=== PATIENT | male | born 1955 | race Caucasian/White ===

== ENCOUNTER 2018-03-16 12:05 | Inpatient (IN) | payer OTHER ==
[2018-03-16 13:01] LABS: % BASOPHILS 0.2 % (0.0-2.0); % EOSINOPHILS 1.1 % (0.0-5.0); % LYMPHOCYTES 13.2 % (20.0-50.0); % MONOCYTES 7.3 % (2.0-10.0); % NEUTROPHILS 78.2 % (40.0-80.0); EOSINOPHILE ABSOLUTE 0.1 Th/cmm (0.1-0.4); HEMATOCRIT 44.7 % (41.0-60); HEMOGLOBIN 14.9 gm/dL (12-16); LYMPHOCYTE ABSOLUTE 1.4 Th/cmm (1.5-3.0); MEAN CELL VOLUME 93.3 fl (80-99); MEAN CORPUSCULAR HEMOGLOBIN 31.2 pg (26.0-30.0); MEAN CORPUSCULAR HGB CONC 33.4 pg (28.0-36.0); MEAN PLATELET VOLUME 7.9 fl; MONOCYTE ABSOLUTE 0.8 Th/cmm (0.3-1.0); PLATELET COUNT 220 Th/cmm (150-400); RED BLOOD COUNT 4.79 Mil/cmm (4.30-5.70); RED CELL DISTRIBUTION WIDTH 12.8 % (11.5-20.0); WHITE BLOOD COUNT 10.3 Th/cmm (4.8-10.8)
[2018-03-16 13:21] LABS: ACETAMINOPHEN < 10.0 ug/mL (10.0-30.0); ALBUMIN 4.8 gm/dL (4.2-5.5); ALKALINE PHOSPHATASE 103 U/L (34-104); BILIRUBIN,TOTAL 0.8 mg/dL (0.3-1.0); BUN - UREA NITROGEN 22 mg/dL (7-25); CALCIUM SERUM 10.2 mg/dL (8.6-10.3); CARBON DIOXIDE 29.4 mEq/L (21.0-31.0); CHLORIDE 98 mEq/L (98-107); CHOLESTEROL 112 mg/dL (<200); CREATININE - SERUM 1.1 mg/dL (0.7-1.3); GFR AFRICAN-AMERICAN > 60.0 ml/min (>90); GFR NON AFRICAN-AMERICAN > 60.0 ml/min; GLUCOSE 119 mg/dL (70-105); HDL -HIGH DENSITY LIPOPROTEIN 63 mg/dL (23-92); POTASSIUM SERUM 3.4 mEq/L (3.5-5.1); SALICYLATES (ASPIRIN) < 25.0 mg/L (30.0-100.0); SGOT 12 U/L (13-39); SGPT/ALT 12 U/L (7-52); SODIUM SERUM 137 mEq/L (136-145); TOTAL PROTEIN,SERUM 7.2 gm/dL (6.0-8.3); TRIGLYCERIDES 90 mg/dL (<150)
[2018-03-16 13:42] LABS: URINE SOURCE CLEAN C
[2018-03-16 13:50] LABS: URINE BILIRUBIN NEGATIVE (NEGATIVE); URINE BLOOD NEGATIVE (NEGATIVE); URINE GLUCOSE (UA) NEGATIVE (NEGATIVE); URINE KETONE TRACE mg/dL (NEGATIVE); URINE LEUKOCYTE ESTERASE NEGATIVE (NEGATIVE); URINE NITRATE NEGATIVE (NEGATIVE); URINE PH 5.5 (4.6 - 8.0); URINE PROTEIN NEGATIVE (NEGATIVE)
[2018-03-16 13:54] LABS: URINE CLARITY CLEAR (CLEAR); URINE COLOR YELLOW; URINE MICROSCOPIC INDICATED? YES
--- NOTE | 2018-03-16 14:02 | ED Physician Chart ---
ED Chief Complaint/HPI - Patient Information Date Seen:: 03/16/18 Time Seen:: 12:15 Chief Complaint:: Depression History of Present Illness:: onset x 2 days of depression and SIs; no report of trauma, H/As, neck pain, C/P , SOB, Abd. pain, A/N/V/D/C, fever, chills, or urinary s/s Allergies:: Allergies Allergy/AdvReac Type Severity Reaction Status Date / Time No Known Allergies Allergy Verified 03/16/18 12:25 Vitals:: Vital Signs - 8 hr 03/16/18 12:13 Temp 97.4 F HR 79 RR 18 BP 127/65 Historian:: Patient, EMS Review:: Nurse's Note Reviewed, Old Chart Reviewed, EMS run form Reviewed ED Review of Systems - Review of Systems General/Constitutional: No fever, No chills, No weight loss, No weakness, No diaphoresis, No edema, No loss of appetite Skin: No skin lesions, No rash, No bruising Head: No headache, No light-headedness Eyes: No loss of vision, No pain, No diplopia ENT: No earache, No nasal drainage, No sore throat, No tinnitus Neck: No neck pain, No swelling, No thyromegaly, No stiffness, No mass noted Cardio Vascular: No chest pain, No palpitations, No PND, No orthopnea, No edema Pulmonary: No SOB, No cough, No sputum, No wheezing GI: No nausea, No vomiting, No diarrhea, No pain, No melena, No hematochezia, No constipation, No hematemesis G/U: No dysuria, No frequency, No hematuria, No nacturia Musculoskeletal: No bone or joint pain, No back pain, No muscle pain Endocrine: No polyuria, No polydipsia Psychiatric: Prior psych history, Depression, Anxiety, Suicidal ideation, No homicidal ideation, No auditory hallucination, No visual hallucination Hematopoietic: No bruising, No lymphadenopathy Allergic/Immuno: No urticaria, No angioedema Neurological: No syncope, No focal symptoms, No weakness, No paresthesia, No headache, No seizure, No dizziness, No confusion, No vertigo ED Past Medical History - Past Medical History Obtainable: Yes Past Medical History: HTN, DM, CAD, Dyslipidemia Family History: Diabetes Melitus, HTN Social History: Non Smoker, No Alcohol, No Drug Use, Single, Care Facility Surgical History: None Psychiatricy History: Depression, Bipolar Medication: Reviewed Family Medical History - Family Member Mother History Unknown: Yes ED Physical Exam - Physical Examination General/Constitutional: Awake, Well-developed, well-nourished, Alert, No distress, GCS 15, Non-toxic appearing, Ambulatory Head: Atraumatic Eyes: Lids, conjuctiva normal, PERRL, EOMI Skin: Nl inspection, No rash, No skin lesions, No ecchymosis, Well hydrated, No lymphadenopathy ENMT: External ears, nose nl, TM canals nl, Nasal exam nl, Lips, teeth, gums nl , Oropharynx nl, Tonsils nl Neck: Nontender, Full ROM w/o pain, No JVD, No nuchal rigidity, No bruit, No mass, No stridor Respiratory: Nl effort/Exclusion, Clear to Auscultation, No Wheeze/Rhonchi/Rales Cardio Vascular: RRR, No murmur, gallop, rubs, NL S1 S2, Carotid/Femoral/Distal pulses equal bilaterally GI: No tenderness/rebounding/guarding, No organomegaly, No hernia, Normal BS's, Nondistended, No mass/bruits, No McBurney tenderness : No CVA tenderness Extremities: No tenderness or effusion, Full ROM, normal strength in all extremities, No edema, Normal digits & nails Neuro/Psych: Alert/oriented, DTR's symmetric, Normal sensory exam, Normal motor strength, Judgement/insight normal, Mood normal, Normal gait, No focal deficits Other Neuro/Psych comments:: + Psychomotor Retardation; + SIs; Mood/Affect: Labile Misc: Normal back, No paraspinal tenderness ED Labs/Radiology/EKG Results - Lab Results Results: Laboratory Tests 03/16/18 03/16/18 03/16/18 12:50 12:50 12:50 WBC 10.3 RBC 4.79 Hgb 14.9 Hct 44.7 MCV 93.3 MCH 31.2 H MCHC Differential 33.4 RDW 12.8 Plt Count 220 MPV 7.9 Neutrophils % 78.2 Lymphocytes % 13.2 L Monocytes % 7.3 Eosinophils % 1.1 Basophils % 0.2 Sodium 137 Potassium 3.4 L Chloride 98 Carbon Dioxide 29.4 Anion Gap 13.0 BUN 22 Creatinine 1.1 Est GFR ( Amer) > 60.0 Est GFR (Non-Af Amer) > 60.0 BUN/Creatinine Ratio 20.0 Glucose 119 H Calcium 10.2 Total Bilirubin 0.8 AST 12 L ALT 12 Alkaline Phosphatase 103 Troponin I Total Protein 7.2 Albumin 4.8 Globulin 2.4 Albumin/Globulin Ratio 2.0 H Triglycerides 90 Cholesterol 112 LDL Cholesterol Direct 37 L HDL Cholesterol 63 TSH 0.62 Urine Color Urine Clarity Urine pH Ur Specific [place] Urine Protein Urine Glucose (UA) Urine Ketones Urine Blood Urine Nitrate Urine Bilirubin Urine Urobilinogen Ur Leukocyte Esterase Salicylates < 25.0 L Acetaminophen < 10.0 L Ethyl Alcohol < 10 03/16/18 03/16/18 12:50 13:05 WBC RBC Hgb Hct MCV MCH MCHC Differential RDW Plt Count MPV Neutrophils % Lymphocytes % Monocytes % Eosinophils % Basophils % Sodium Potassium Chloride Carbon Dioxide Anion Gap BUN Creatinine Est GFR ( Amer) Est GFR (Non-Af Amer) BUN/Creatinine Ratio Glucose Calcium Total Bilirubin AST ALT Alkaline Phosphatase Troponin I 0.01 Total Protein Albumin Globulin Albumin/Globulin Ratio Triglycerides Cholesterol LDL Cholesterol Direct HDL Cholesterol TSH Urine Color YELLOW Urine Clarity CLEAR Urine pH 5.5 Ur Specific [place] 1.025 Urine Protein NEGATIVE Urine Glucose (UA) NEGATIVE Urine Ketones TRACE Urine Blood NEGATIVE Urine Nitrate NEGATIVE Urine Bilirubin NEGATIVE Urine Urobilinogen 1.0 Ur Leukocyte Esterase NEGATIVE Salicylates Acetaminophen Ethyl Alcohol Comments:: Reviewed - EKG Interpretations EKG Time:: 12:48 Rate & Rhythm: 72; NSR Comments:: non-specific st-t changes ED Septic Shock - . Is Septic Shock (SBP<90, OR Lactate>4 mmol\L) present?: No - <6hrs of presentation: Vital Signs: Vital Signs - 8 hr 03/16/18 12:13 Temp 97.4 F HR 79 RR 18 BP 127/65 ED Reassessment (Disposition) - Reassessment Reassessment Condition:: Improved - Diagnosis Diagnosis:: Dx: Depression; Hypokalemia; Suicidal Ideations; Medical Clearance
[2018-03-16 14:12] LABS: URINE BACTERIA FEW /hpf (NONE SEEN); URINE EPITHELIAL CELLS OCCASIONAL /lpf (FEW); URINE WBC 0-2 /hpf (0-5)
[2018-03-16 14:24] LABS: AMPHETAMINE URINE NEGATIVE (NEGATIVE); BARBITURATES URINE NEGATIVE (NEGATIVE); BENZODIAZEPINES QUAL URINE POSITIVE (NEGATIVE); CANNABINOID THC NEGATIVE (NEGATIVE); COCAINE METABOLITE QUAL URINE NEGATIVE (NEGATIVE); METHADONE URINE NEGATIVE (NEGATIVE); METHAMPHETAMINES QUAL URINE NEGATIVE (NEGATIVE); OPIATES (MORPHINE) QUAL. URINE NEGATIVE (NEGATIVE); PHENCYCLIDINE (PCP) URINE NEGATIVE (NEGATIVE); TRICYCLICS (TCA) QUAL. URINE NEGATIVE (NEGATIVE)
[2018-03-16] MEDS ORDERED: Potassium Chloride 20 mEq ER Tab PO ONE ×3 (14:40→16:58)
[2018-03-16 15:56] LABS: PROTHROMBIN TIME (TEST) 40.8 SECONDS (9.5-11.5)
[2018-03-16 16:01] LABS: INR 4.2 (0.5-1.4)
[2018-03-16 18:52] LABS: PROTHROMBIN TIME (TEST) 45.8 SECONDS (9.5-11.5)
[2018-03-16 19:00] LABS: INR 4.74 (0.5-1.4)
[2018-03-17 08:48] LABS: INR 3.31 (0.5-1.4); PROTHROMBIN TIME (TEST) 32.6 SECONDS (9.5-11.5)
--- NOTE | 2018-03-17 14:59 | History & Physical ---
ADMIT DATE: 03/17/2018 CHIEF COMPLAINT: Major depression. HISTORY OF PRESENT ILLNESS: The patient is a 62-year-old male with long history of hypertension, diabetes mellitus, hyperlipidemia, and depression, presented to the Emergency Room with suicidal ideation. The patient is evaluated by the ER physician. Initial workup significant for Coumadin overdose. The patient admitted to medical floor. Psych evaluation ordered. No chest pain, no shortness of breath, no nausea, no vomiting. PAST MEDICAL HISTORY: Significant for hypertension, diabetes mellitus, hyperlipidemia, DVT of lower extremity, depression. PAST SURGICAL HISTORY: No recent surgery. ALLERGIES: None. MEDICATIONS: Follow admission reconciliation. SOCIAL HISTORY: No smoking, no alcohol, no drugs. FAMILY HISTORY: Noncontributory. REVIEW OF SYSTEMS: RENAL SYSTEM: No history of chronic renal disorder. CARDIOVASCULAR SYSTEM: No coronary artery disease. ENDOCRINE SYSTEM: Has history of diabetes mellitus. GASTROINTESTINAL SYSTEM: No upper or lower gastrointestinal bleed. NEUROLOGICAL SYSTEM: Seizure disorder. MUSCULOSKELETAL SYSTEM: No muscular dystrophy. HEMATOLOGICAL SYSTEM: No bleeding tendencies. RESPIRATORY SYSTEM: No asthma. GENITOURINARY SYSTEM: No dysuria or hematuria. PHYSICAL EXAMINATION: GENERAL: He is awake, alert, oriented. VITAL SIGNS: Temperature is 99, heart rate 64, blood pressure 100/68. HEENT: Normocephalic. Pupils reacting to light and accommodation. Sclerae clear. NECK: Supple. Negative for lymphadenopathy, JVD or bruit. CHEST: Entry of air bilaterally normal. No rhonchi or wheezing. HEART: S1, S2 normal. No gallop rhythm. ABDOMEN: Soft, bowel sounds positive. EXTREMITIES: No edema. NEUROLOGIC: Awake, alert, oriented. No focal motor or sensory deficit. Cranial nerves 2-12 are intact. LABORATORY DATA: White blood cell 10.3, hemoglobin 14.9, hematocrit 220. INR 4.2. Sodium 137, potassium 3.4, BUN 22, creatinine 0.1. ASSESSMENT: 1. Coumadin overdose. 2. Major depression. 3. Hypertension. 4. Diabetes mellitus. 5. 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 PLAN: The patient admitted to the medical floor, started on 1800 kilocalories diet, sliding scale with regular insulin coverage. Dr. Zarate, psychiatrist consulted on the case. The patient will resume his medication. Pharmacy consult to dose Coumadin. The patient is a full code. JOB# [id number]
--- NOTE | 2018-03-17 19:37 | History & Physical ---
ADMIT DATE: 03/17/2018 IDENTIFYING DATA: The patient is a 62-year-old male living with his family. Information obtained directly interviewing the patient as well as reviewing the admission papers and they and they are reliable. JUSTIFICATION OF HOSPITALIZATION: The patient is admitted here on a 5150 as a danger to self. CHIEF COMPLAINT: "I'm feeling depressed and wanted to kill myself." HISTORY OF PRESENT ILLNESS: This patient has been feeling depressed since his mother a month ago. The patient is reported to have wanting to take a knife and then cut his throat until he starts to bleed and . The patient is stating that he has been getting acutely depressed since mother and was hospitalized on two occasions at [facility] for 3 days each and was discharged recently. The patient is stating that he has been seeing the doctor, but has been taking a medicine called the Lexapro that has been helping him with the depression. The patient at this time is feeling frustrated and has been having problem with his brothers with whom he is living and is stating that he wanted to end his life and hence he has been admitted over here for stabilization admitted to the Emergency Room. The patient is also reported to have a history of overdosing on Coumadin. PAST PSYCHIATRIC HISTORY: Please refer to the above. MEDICAL HISTORY: Significant for hypertension. SOCIAL HISTORY: The patient is living with his brother. The patient is recently sustained a loss of his mother. SUBSTANCE ABUSE HISTORY: None. PHYSICAL OR SEXUAL ABUSE HISTORY: None. LEGAL PROBLEMS: None at this time. MENTAL STATUS EXAMINATION: The patient is a 62-year-old, looking older than his stated age, superficially cooperative. Eye contact is poor. Mood is depressed. Affect is constricted. Insight and judgment at this time are noted to be impaired. Impulse control is noted to be poor. The patient is suicidal with the plan ____ homicidal ideation is noted since the patient has been wanting to end his life and wants to cut his throat with a knife. The patient is alert and oriented. Attention span and concentration are noted to be impaired. Short and long-term memory are noted to be fair. DIAGNOSTIC IMPRESSION: AXIS I: Major depressive disorder, first episode and severe. AXIS II: None. PLAN: To closely monitor the patient. We will continue the Lexapro and follow the patient with the supportive therapy. [facility]# [id number]
[2018-03-17] MEDS: INSULIN ASPART SLIDING SCALE 100 UNITS/ML UNIT SUBQ SCH (21:00)
[2018-03-17 23:47] VITALS: BP 95/63
[2018-03-18 06:54] LABS: INR 1.61 (0.5-1.4); PROTHROMBIN TIME (TEST) 16.3 SECONDS (9.5-11.5)
[2018-03-18] MEDS: INSULIN ASPART SLIDING SCALE 100 UNITS/ML UNIT SUBQ SCH ×4 (07:28→22:07)
[2018-03-18] MEDS ORDERED: Calcium Carb/Vit D 500 mg/200 U Tab PO SCH (09:00)
[2018-03-18] MEDS: Atorvastatin Calcium 10 MG TAB PO SCH (09:35)
--- NOTE | 2018-03-18 15:01 | Progress Notes ---
DATE: 03/18/2018 SUBJECTIVE: Staff was spoken to. The patient is interviewed. Mood is noted to be irritable. Affect is constricted. The patient is still depressed, suicidal. No homicidal ideation is noted. The patient feels helpless and hopeless. Coping skills are noted to be extremely poor. The patient is stating that he is frustrated. The patient has been having poor coping skills. ASSESSMENT: The patient is still suicidal and depressed. PLAN: To continue the patient on Lexapro and followup. JOB# [id number]
--- NOTE | 2018-03-18 22:37 | Internal Medicine Prog Note ---
Internal Medicine Subjective - Subjective Service Date: 03/18/18 Patient seen and examined:: with staff (HE FEELS BETTER) Patient is:: awake, verbal, in bed, talking Per staff patient has:: no adverse event Internal Medicine Objective - Results Result Diagrams: 03/16/18 12:50 03/16/18 12:50 Recent Labs: Laboratory Last Values WBC 10.3 Th/cmm (4.8-10.8) 03/16/18 12:50 RBC 4.79 Mil/cmm (4.30-5.70) 03/16/18 12:50 Hgb 14.9 gm/dL (12-16) 03/16/18 12:50 Hct 44.7 % (41.0-60) 03/16/18 12:50 MCV 93.3 fl (80-99) 03/16/18 12:50 MCH 31.2 pg (26.0-30.0) H 03/16/18 12:50 MCHC Differential 33.4 pg (28.0-36.0) 03/16/18 12:50 RDW 12.8 % (11.5-20.0) 03/16/18 12:50 Plt Count 220 Th/cmm (150-400) 03/16/18 12:50 MPV 7.9 fl 03/16/18 12:50 Neutrophils % 78.2 % (40.0-80.0) 03/16/18 12:50 Lymphocytes % 13.2 % (20.0-50.0) L 03/16/18 12:50 Monocytes % 7.3 % (2.0-10.0) 03/16/18 12:50 Eosinophils % 1.1 % (0.0-5.0) 03/16/18 12:50 Basophils % 0.2 % (0.0-2.0) 03/16/18 12:50 PT 16.3 SECONDS (9.5-11.5) H 03/18/18 05:33 INR 1.61 (0.5-1.4) H 03/18/18 05:33 Sodium 137 mEq/L (136-145) 03/16/18 12:50 Potassium 3.4 mEq/L (3.5-5.1) L 03/16/18 12:50 Chloride 98 mEq/L (98-107) 03/16/18 12:50 Carbon Dioxide 29.4 mEq/L (21.0-31.0) 03/16/18 12:50 Anion Gap 13.0 (7.0-16.0) 03/16/18 12:50 BUN 22 mg/dL (7-25) 03/16/18 12:50 Creatinine 1.1 mg/dL (0.7-1.3) 03/16/18 12:50 Est GFR ( Amer) > 60.0 ml/min (>90) 03/16/18 12:50 Est GFR (Non-Af Amer) > 60.0 ml/min 03/16/18 12:50 BUN/Creatinine Ratio 20.0 03/16/18 12:50 Glucose 119 mg/dL (70-105) H 03/16/18 12:50 POC Glucose 95 MG/DL (70 - 105) 03/18/18 16:47 Calcium 10.2 mg/dL (8.6-10.3) 03/16/18 12:50 Total Bilirubin 0.8 mg/dL (0.3-1.0) 03/16/18 12:50 AST 12 U/L (13-39) L 03/16/18 12:50 ALT 12 U/L (7-52) 03/16/18 12:50 Alkaline Phosphatase 103 U/L (34-104) 03/16/18 12:50 Troponin I 0.01 ng/mL (0.01-0.05) 03/16/18 12:50 Total Protein 7.2 gm/dL (6.0-8.3) 03/16/18 12:50 Albumin 4.8 gm/dL (4.2-5.5) 03/16/18 12:50 Globulin 2.4 gm/dL 03/16/18 12:50 Albumin/Globulin Ratio 2.0 (1.0-1.8) H 03/16/18 12:50 Triglycerides 90 mg/dL (<150) 03/16/18 12:50 Cholesterol 112 mg/dL (<200) 03/16/18 12:50 LDL Cholesterol Direct 37 mg/dL (75-193) L 03/16/18 12:50 HDL Cholesterol 63 mg/dL (23-92) 03/16/18 12:50 TSH 0.62 uIU/ml (0.34-5.60) 03/16/18 12:50 Urine Source CLEAN C 03/16/18 13:05 Urine Color YELLOW 03/16/18 13:05 Urine Clarity CLEAR (CLEAR) 03/16/18 13:05 Urine pH 5.5 (4.6 - 8.0) 03/16/18 13:05 Ur Specific [place] 1.025 (1.005-1.030) 03/16/18 13:05 Urine Protein NEGATIVE mg/dL (NEGATIVE) 03/16/18 13:05 Urine Glucose (UA) NEGATIVE mg/dL (NEGATIVE) 03/16/18 13:05 Urine Ketones TRACE mg/dL (NEGATIVE) 03/16/18 13:05 Urine Blood NEGATIVE (NEGATIVE) 03/16/18 13:05 Urine Nitrate NEGATIVE (NEGATIVE) 03/16/18 13:05 Urine Bilirubin NEGATIVE (NEGATIVE) 03/16/18 13:05 Urine Urobilinogen 1.0 E.U./dL (0.2 - 1.0) 03/16/18 13:05 Ur Leukocyte Esterase NEGATIVE (NEGATIVE) 03/16/18 13:05 Urine RBC 2-5 /hpf (0-5) H 03/16/18 13:05 Urine WBC 0-2 /hpf (0-5) 03/16/18 13:05 Ur Epithelial Cells OCCASIONAL /lpf (FEW) 03/16/18 13:05 Urine Bacteria FEW /hpf (NONE SEEN) 03/16/18 13:05 Urine Mucus FEW /lpf (FEW) 03/16/18 13:05 Salicylates < 25.0 mg/L (30.0-100.0) L 03/16/18 12:50 Urine Opiates Screen NEGATIVE (NEGATIVE) 03/16/18 13:05 Urine Methadone Screen NEGATIVE (NEGATIVE) 03/16/18 13:05 Acetaminophen < 10.0 ug/mL (10.0-30.0) L 03/16/18 12:50 Ur Barbiturates Screen NEGATIVE (NEGATIVE) 03/16/18 13:05 Ur Tricyclics Screen NEGATIVE (NEGATIVE) 03/16/18 13:05 Ur Phencyclidine Scrn NEGATIVE (NEGATIVE) 03/16/18 13:05 Amphetamines Screen NEGATIVE (NEGATIVE) 03/16/18 13:05 U Methamphetamines Scrn NEGATIVE (NEGATIVE) 03/16/18 13:05 U Benzodiazepines Scrn POSITIVE (NEGATIVE) H 03/16/18 13:05 U Cocaine Metab Screen NEGATIVE (NEGATIVE) 03/16/18 13:05 U Cannabinoids Screen NEGATIVE (NEGATIVE) 03/16/18 13:05 Ethyl Alcohol < 10 mg/dL (0-10) 03/16/18 12:50 - Physical Exam Vitals and I&O: Vital Signs Temp 97.4 F 03/18/18 16:56 Pulse 58 03/18/18 16:56 Resp 17 03/18/18 16:56 BP 98/55 03/18/18 16:56 Pulse Ox 99 03/18/18 16:56 Intake & Output 03/18/18 03/18/18 03/19/18 06:59 18:59 06:59 Intake Total 100 750 Balance 100 750 Weight (lbs) 65.317 kg 65.317 kg Intake: Oral 100 750 Other: # Voids 1 3 # Bowel Movements 1 0 Weight Source Bedscale Bedscale Active Medications: Current Medications Atorvastatin Calcium (Lipitor) 20 mg PO DAILY [facility] Stop: 05/17/18 08:59 Last Admin: 03/18/18 09:35 Dose: 20 mg Calcium/Vitamin D (Oscal W/Vitamin D) 1 tab PO DAILY [facility] Stop: 05/17/18 08:59 Clotrimazole (Lotrimin 1% Cream) 1 appl TP BID [facility] Stop: 05/16/18 16:59 Last Admin: 03/18/18 17:02 Dose: 1 appl Escitalopram Oxalate (Lexapro) 10 mg PO HS [facility] Stop: 05/17/18 12:29 Last Admin: 03/18/18 22:10 Dose: Not Given Furosemide (Lasix) 20 mg PO DAILY [facility] Stop: 05/17/18 08:59 Last Admin: 03/18/18 09:45 Dose: Not Given Insulin Aspart (Novolog Insulin Sliding Scale) 0 units SUBQ ACHS [facility]; Protocol Stop: 05/16/18 11:29 Last Admin: 03/18/18 22:07 Dose: Not Given Lisinopril (Zestril) 5 mg PO DAILY [facility] Stop: 05/17/18 08:59 Last Admin: 03/18/18 09:46 Dose: Not Given Metformin HCl (Glucophage) 500 mg PO BID [facility] Stop: 05/16/18 16:59 Last Admin: 03/18/18 17:02 Dose: 500 mg Trazodone HCl (Desyrel) 25 mg PO HS [facility]; Protocol Stop: 05/17/18 12:29 Last Admin: 03/18/18 22:10 Dose: Not Given Warfarin Sodium (Coumadin Per Pharmacy) 1 ea PRN PRN; Protocol PRN Reason: RX MONITORING Stop: 05/16/18 13:51 General: alert HEENT: NC/AT, PERRLA, EOMI, anicteric sclerae, throat clear Neck: Supple, No JVD, No thyromegaly, +2 carotid pulse wo bruit, No LAD Lungs: CTAB Cardiovascular: Normal S1, Normal S2, without murmur Abdomen: non-tender, non-distended Neurological: no change Internal Medicine Assmt/Plan - Assessment Assessment: 1.HTN. 2.DM. 3.DEPRESSION - Plan Plan: CONTINUE ON CURRENT MEDICATION AND DIET.
[2018-03-19 06:01] LABS: INR 1.3 (0.5-1.4); PROTHROMBIN TIME (TEST) 13.3 SECONDS (9.5-11.5)
[2018-03-19] MEDS: INSULIN ASPART SLIDING SCALE 100 UNITS/ML UNIT SUBQ SCH ×4 (07:47→22:18)
[2018-03-19] MEDS: Atorvastatin Calcium 10 MG TAB PO SCH (09:05)
[2018-03-19] MEDS: Calcium Carb/Vit D 500 mg/200 U Tab PO SCH (09:05)
--- NOTE | 2018-03-19 21:51 | Internal Medicine Prog Note ---
Internal Medicine Subjective - Subjective Service Date: 03/19/18 Patient seen and examined:: with staff Patient is:: awake, verbal, in bed, talking Per staff patient has:: no adverse event Internal Medicine Objective - Results Result Diagrams: 03/16/18 12:50 03/16/18 12:50 Recent Labs: Laboratory Last Values WBC 10.3 Th/cmm (4.8-10.8) 03/16/18 12:50 RBC 4.79 Mil/cmm (4.30-5.70) 03/16/18 12:50 Hgb 14.9 gm/dL (12-16) 03/16/18 12:50 Hct 44.7 % (41.0-60) 03/16/18 12:50 MCV 93.3 fl (80-99) 03/16/18 12:50 MCH 31.2 pg (26.0-30.0) H 03/16/18 12:50 MCHC Differential 33.4 pg (28.0-36.0) 03/16/18 12:50 RDW 12.8 % (11.5-20.0) 03/16/18 12:50 Plt Count 220 Th/cmm (150-400) 03/16/18 12:50 MPV 7.9 fl 03/16/18 12:50 Neutrophils % 78.2 % (40.0-80.0) 03/16/18 12:50 Lymphocytes % 13.2 % (20.0-50.0) L 03/16/18 12:50 Monocytes % 7.3 % (2.0-10.0) 03/16/18 12:50 Eosinophils % 1.1 % (0.0-5.0) 03/16/18 12:50 Basophils % 0.2 % (0.0-2.0) 03/16/18 12:50 PT 13.3 SECONDS (9.5-11.5) H 03/19/18 05:20 INR 1.30 (0.5-1.4) 03/19/18 05:20 Sodium 137 mEq/L (136-145) 03/16/18 12:50 Potassium 3.4 mEq/L (3.5-5.1) L 03/16/18 12:50 Chloride 98 mEq/L (98-107) 03/16/18 12:50 Carbon Dioxide 29.4 mEq/L (21.0-31.0) 03/16/18 12:50 Anion Gap 13.0 (7.0-16.0) 03/16/18 12:50 BUN 22 mg/dL (7-25) 03/16/18 12:50 Creatinine 1.1 mg/dL (0.7-1.3) 03/16/18 12:50 Est GFR ( Amer) > 60.0 ml/min (>90) 03/16/18 12:50 Est GFR (Non-Af Amer) > 60.0 ml/min 03/16/18 12:50 BUN/Creatinine Ratio 20.0 03/16/18 12:50 Glucose 119 mg/dL (70-105) H 03/16/18 12:50 POC Glucose 107 MG/DL (70 - 105) H 03/19/18 21:31 Calcium 10.2 mg/dL (8.6-10.3) 03/16/18 12:50 Total Bilirubin 0.8 mg/dL (0.3-1.0) 03/16/18 12:50 AST 12 U/L (13-39) L 03/16/18 12:50 ALT 12 U/L (7-52) 03/16/18 12:50 Alkaline Phosphatase 103 U/L (34-104) 03/16/18 12:50 Troponin I 0.01 ng/mL (0.01-0.05) 03/16/18 12:50 Total Protein 7.2 gm/dL (6.0-8.3) 03/16/18 12:50 Albumin 4.8 gm/dL (4.2-5.5) 03/16/18 12:50 Globulin 2.4 gm/dL 03/16/18 12:50 Albumin/Globulin Ratio 2.0 (1.0-1.8) H 03/16/18 12:50 Triglycerides 90 mg/dL (<150) 03/16/18 12:50 Cholesterol 112 mg/dL (<200) 03/16/18 12:50 LDL Cholesterol Direct 37 mg/dL (75-193) L 03/16/18 12:50 HDL Cholesterol 63 mg/dL (23-92) 03/16/18 12:50 TSH 0.62 uIU/ml (0.34-5.60) 03/16/18 12:50 Urine Source CLEAN C 03/16/18 13:05 Urine Color YELLOW 03/16/18 13:05 Urine Clarity CLEAR (CLEAR) 03/16/18 13:05 Urine pH 5.5 (4.6 - 8.0) 03/16/18 13:05 Ur Specific [place] 1.025 (1.005-1.030) 03/16/18 13:05 Urine Protein NEGATIVE mg/dL (NEGATIVE) 03/16/18 13:05 Urine Glucose (UA) NEGATIVE mg/dL (NEGATIVE) 03/16/18 13:05 Urine Ketones TRACE mg/dL (NEGATIVE) 03/16/18 13:05 Urine Blood NEGATIVE (NEGATIVE) 03/16/18 13:05 Urine Nitrate NEGATIVE (NEGATIVE) 03/16/18 13:05 Urine Bilirubin NEGATIVE (NEGATIVE) 03/16/18 13:05 Urine Urobilinogen 1.0 E.U./dL (0.2 - 1.0) 03/16/18 13:05 Ur Leukocyte Esterase NEGATIVE (NEGATIVE) 03/16/18 13:05 Urine RBC 2-5 /hpf (0-5) H 03/16/18 13:05 Urine WBC 0-2 /hpf (0-5) 03/16/18 13:05 Ur Epithelial Cells OCCASIONAL /lpf (FEW) 03/16/18 13:05 Urine Bacteria FEW /hpf (NONE SEEN) 03/16/18 13:05 Urine Mucus FEW /lpf (FEW) 03/16/18 13:05 Salicylates < 25.0 mg/L (30.0-100.0) L 03/16/18 12:50 Urine Opiates Screen NEGATIVE (NEGATIVE) 03/16/18 13:05 Urine Methadone Screen NEGATIVE (NEGATIVE) 03/16/18 13:05 Acetaminophen < 10.0 ug/mL (10.0-30.0) L 03/16/18 12:50 Ur Barbiturates Screen NEGATIVE (NEGATIVE) 03/16/18 13:05 Ur Tricyclics Screen NEGATIVE (NEGATIVE) 03/16/18 13:05 Ur Phencyclidine Scrn NEGATIVE (NEGATIVE) 03/16/18 13:05 Amphetamines Screen NEGATIVE (NEGATIVE) 03/16/18 13:05 U Methamphetamines Scrn NEGATIVE (NEGATIVE) 03/16/18 13:05 U Benzodiazepines Scrn POSITIVE (NEGATIVE) H 03/16/18 13:05 U Cocaine Metab Screen NEGATIVE (NEGATIVE) 03/16/18 13:05 U Cannabinoids Screen NEGATIVE (NEGATIVE) 03/16/18 13:05 Ethyl Alcohol < 10 mg/dL (0-10) 03/16/18 12:50 - Physical Exam Vitals and I&O: Vital Signs Temp 99 F 03/19/18 17:00 Pulse 98 03/19/18 17:00 Resp 20 03/19/18 17:00 BP 99/60 03/19/18 17:00 Pulse Ox 98 03/19/18 17:00 Intake & Output 03/19/18 03/19/18 03/20/18 06:59 18:59 06:59 Intake Total 700 Balance 700 Weight (lbs) 65.317 kg Intake: Oral 700 Other: # Voids 4 # Bowel Movements 0 Weight Source Bedscale Active Medications: Current Medications Atorvastatin Calcium (Lipitor) 20 mg PO DAILY [facility] Stop: 05/17/18 08:59 Last Admin: 03/19/18 09:05 Dose: 20 mg Calcium/Vitamin D (Oscal W/Vitamin D) 1 tab PO DAILY [facility] Stop: 05/17/18 08:59 Last Admin: 03/19/18 09:05 Dose: 1 tab Clotrimazole (Lotrimin 1% Cream) 1 appl TP BID [facility] Stop: 05/16/18 16:59 Last Admin: 03/19/18 16:12 Dose: 1 appl Escitalopram Oxalate (Lexapro) 10 mg PO HS [facility] Stop: 05/17/18 12:29 Last Admin: 03/19/18 21:26 Dose: 10 mg Furosemide (Lasix) 20 mg PO DAILY [facility] Stop: 05/17/18 08:59 Last Admin: 03/19/18 09:08 Dose: Not Given Insulin Aspart (Novolog Insulin Sliding Scale) 0 units SUBQ ACHS [facility]; Protocol Stop: 05/16/18 11:29 Last Admin: 03/19/18 16:43 Dose: Not Given Lisinopril (Zestril) 5 mg PO DAILY [facility] Stop: 05/17/18 08:59 Last Admin: 03/19/18 09:08 Dose: Not Given Metformin HCl (Glucophage) 500 mg PO BID [facility] Stop: 05/16/18 16:59 Last Admin: 03/19/18 16:13 Dose: 500 mg Trazodone HCl (Desyrel) 25 mg PO HS GABBY; Protocol Stop: 05/17/18 12:29 Last Admin: 03/19/18 21:24 Dose: 25 mg Warfarin Sodium (Coumadin Per Pharmacy) 1 ea [facility] PRN PRN; Protocol PRN Reason: RX MONITORING Stop: 05/16/18 13:51 General: alert HEENT: NC/AT, PERRLA, EOMI, anicteric sclerae, throat clear Neck: Supple, No JVD, No thyromegaly, +2 carotid pulse wo bruit, No LAD Lungs: CTAB Cardiovascular: Normal S1, Normal S2, without murmur Abdomen: non-tender, non-distended Neurological: no change Internal Medicine Assmt/Plan - Assessment Assessment: 1.HTN. 2.DM. 3.DEPRESSION - Plan Plan: CONTINUE ON CURRENT MEDICATION AND DIET.
--- NOTE | 2018-03-19 22:14 | Internal Medicine Prog Note ---
Internal Medicine Subjective - Subjective Service Date: 03/19/18 Patient seen and examined:: with staff (HE STILL HAS DEPRESSION) Patient is:: awake, verbal, in bed, talking Per staff patient has:: no adverse event Internal Medicine Objective - Results Result Diagrams: 03/16/18 12:50 03/16/18 12:50 Recent Labs: Laboratory Last Values WBC 10.3 Th/cmm (4.8-10.8) 03/16/18 12:50 RBC 4.79 Mil/cmm (4.30-5.70) 03/16/18 12:50 Hgb 14.9 gm/dL (12-16) 03/16/18 12:50 Hct 44.7 % (41.0-60) 03/16/18 12:50 MCV 93.3 fl (80-99) 03/16/18 12:50 MCH 31.2 pg (26.0-30.0) H 03/16/18 12:50 MCHC Differential 33.4 pg (28.0-36.0) 03/16/18 12:50 RDW 12.8 % (11.5-20.0) 03/16/18 12:50 Plt Count 220 Th/cmm (150-400) 03/16/18 12:50 MPV 7.9 fl 03/16/18 12:50 Neutrophils % 78.2 % (40.0-80.0) 03/16/18 12:50 Lymphocytes % 13.2 % (20.0-50.0) L 03/16/18 12:50 Monocytes % 7.3 % (2.0-10.0) 03/16/18 12:50 Eosinophils % 1.1 % (0.0-5.0) 03/16/18 12:50 Basophils % 0.2 % (0.0-2.0) 03/16/18 12:50 PT 13.3 SECONDS (9.5-11.5) H 03/19/18 05:20 INR 1.30 (0.5-1.4) 03/19/18 05:20 Sodium 137 mEq/L (136-145) 03/16/18 12:50 Potassium 3.4 mEq/L (3.5-5.1) L 03/16/18 12:50 Chloride 98 mEq/L (98-107) 03/16/18 12:50 Carbon Dioxide 29.4 mEq/L (21.0-31.0) 03/16/18 12:50 Anion Gap 13.0 (7.0-16.0) 03/16/18 12:50 BUN 22 mg/dL (7-25) 03/16/18 12:50 Creatinine 1.1 mg/dL (0.7-1.3) 03/16/18 12:50 Est GFR ( Amer) > 60.0 ml/min (>90) 03/16/18 12:50 Est GFR (Non-Af Amer) > 60.0 ml/min 03/16/18 12:50 BUN/Creatinine Ratio 20.0 03/16/18 12:50 Glucose 119 mg/dL (70-105) H 03/16/18 12:50 POC Glucose 107 MG/DL (70 - 105) H 03/19/18 21:31 Calcium 10.2 mg/dL (8.6-10.3) 03/16/18 12:50 Total Bilirubin 0.8 mg/dL (0.3-1.0) 03/16/18 12:50 AST 12 U/L (13-39) L 03/16/18 12:50 ALT 12 U/L (7-52) 03/16/18 12:50 Alkaline Phosphatase 103 U/L (34-104) 03/16/18 12:50 Troponin I 0.01 ng/mL (0.01-0.05) 03/16/18 12:50 Total Protein 7.2 gm/dL (6.0-8.3) 03/16/18 12:50 Albumin 4.8 gm/dL (4.2-5.5) 03/16/18 12:50 Globulin 2.4 gm/dL 03/16/18 12:50 Albumin/Globulin Ratio 2.0 (1.0-1.8) H 03/16/18 12:50 Triglycerides 90 mg/dL (<150) 03/16/18 12:50 Cholesterol 112 mg/dL (<200) 03/16/18 12:50 LDL Cholesterol Direct 37 mg/dL (75-193) L 03/16/18 12:50 HDL Cholesterol 63 mg/dL (23-92) 03/16/18 12:50 TSH 0.62 uIU/ml (0.34-5.60) 03/16/18 12:50 Urine Source CLEAN C 03/16/18 13:05 Urine Color YELLOW 03/16/18 13:05 Urine Clarity CLEAR (CLEAR) 03/16/18 13:05 Urine pH 5.5 (4.6 - 8.0) 03/16/18 13:05 Ur Specific [place] 1.025 (1.005-1.030) 03/16/18 13:05 Urine Protein NEGATIVE mg/dL (NEGATIVE) 03/16/18 13:05 Urine Glucose (UA) NEGATIVE mg/dL (NEGATIVE) 03/16/18 13:05 Urine Ketones TRACE mg/dL (NEGATIVE) 03/16/18 13:05 Urine Blood NEGATIVE (NEGATIVE) 03/16/18 13:05 Urine Nitrate NEGATIVE (NEGATIVE) 03/16/18 13:05 Urine Bilirubin NEGATIVE (NEGATIVE) 03/16/18 13:05 Urine Urobilinogen 1.0 E.U./dL (0.2 - 1.0) 03/16/18 13:05 Ur Leukocyte Esterase NEGATIVE (NEGATIVE) 03/16/18 13:05 Urine RBC 2-5 /hpf (0-5) H 03/16/18 13:05 Urine WBC 0-2 /hpf (0-5) 03/16/18 13:05 Ur Epithelial Cells OCCASIONAL /lpf (FEW) 03/16/18 13:05 Urine Bacteria FEW /hpf (NONE SEEN) 03/16/18 13:05 Urine Mucus FEW /lpf (FEW) 03/16/18 13:05 Salicylates < 25.0 mg/L (30.0-100.0) L 03/16/18 12:50 Urine Opiates Screen NEGATIVE (NEGATIVE) 03/16/18 13:05 Urine Methadone Screen NEGATIVE (NEGATIVE) 03/16/18 13:05 Acetaminophen < 10.0 ug/mL (10.0-30.0) L 03/16/18 12:50 Ur Barbiturates Screen NEGATIVE (NEGATIVE) 03/16/18 13:05 Ur Tricyclics Screen NEGATIVE (NEGATIVE) 03/16/18 13:05 Ur Phencyclidine Scrn NEGATIVE (NEGATIVE) 03/16/18 13:05 Amphetamines Screen NEGATIVE (NEGATIVE) 03/16/18 13:05 U Methamphetamines Scrn NEGATIVE (NEGATIVE) 03/16/18 13:05 U Benzodiazepines Scrn POSITIVE (NEGATIVE) H 03/16/18 13:05 U Cocaine Metab Screen NEGATIVE (NEGATIVE) 03/16/18 13:05 U Cannabinoids Screen NEGATIVE (NEGATIVE) 03/16/18 13:05 Ethyl Alcohol < 10 mg/dL (0-10) 03/16/18 12:50 - Physical Exam Vitals and I&O: Vital Signs Temp 99 F 03/19/18 17:00 Pulse 98 03/19/18 17:00 Resp 20 03/19/18 17:00 BP 99/60 03/19/18 17:00 Pulse Ox 98 03/19/18 17:00 Intake & Output 03/19/18 03/19/18 03/20/18 06:59 18:59 06:59 Intake Total 700 Balance 700 Weight (lbs) 65.317 kg Intake: Oral 700 Other: # Voids 4 # Bowel Movements 0 Weight Source Bedscale Active Medications: Current Medications Atorvastatin Calcium (Lipitor) 20 mg PO DAILY [facility] Stop: 05/17/18 08:59 Last Admin: 03/19/18 09:05 Dose: 20 mg Calcium/Vitamin D (Oscal W/Vitamin D) 1 tab PO DAILY [facility] Stop: 05/17/18 08:59 Last Admin: 03/19/18 09:05 Dose: 1 tab Clotrimazole (Lotrimin 1% Cream) 1 appl TP BID [facility] Stop: 05/16/18 16:59 Last Admin: 03/19/18 16:12 Dose: 1 appl Escitalopram Oxalate (Lexapro) 10 mg PO HS [facility] Stop: 05/17/18 12:29 Last Admin: 03/19/18 21:26 Dose: 10 mg Furosemide (Lasix) 20 mg PO DAILY [facility] Stop: 05/17/18 08:59 Last Admin: 03/19/18 09:08 Dose: Not Given Insulin Aspart (Novolog Insulin Sliding Scale) 0 units SUBQ ACHS [facility]; Protocol Stop: 05/16/18 11:29 Last Admin: 03/19/18 16:43 Dose: Not Given Lisinopril (Zestril) 5 mg PO DAILY [facility] Stop: 05/17/18 08:59 Last Admin: 03/19/18 09:08 Dose: Not Given Metformin HCl (Glucophage) 500 mg PO BID [facility] Stop: 05/16/18 16:59 Last Admin: 03/19/18 16:13 Dose: 500 mg Trazodone HCl (Desyrel) 25 mg PO HS [facility]; Protocol Stop: 05/17/18 12:29 Last Admin: 03/19/18 21:24 Dose: 25 mg Warfarin Sodium (Coumadin Per Pharmacy) 1 ea [facility] PRN PRN; Protocol PRN Reason: RX MONITORING Stop: 05/16/18 13:51 General: alert HEENT: NC/AT, PERRLA, EOMI, anicteric sclerae, throat clear Neck: Supple, No JVD, No thyromegaly, +2 carotid pulse wo bruit, No LAD Lungs: CTAB Cardiovascular: Normal S1, Normal S2, without murmur Abdomen: non-tender, non-distended Neurological: no change Internal Medicine Assmt/Plan - Assessment Assessment: 1.HTN. 2.DM. 3.DEPRESSION - Plan Plan: CONTINUE ON CURRENT MEDICATION AND DIET.
[2018-03-20 07:12] LABS: INR 1.15 (0.5-1.4); PROTHROMBIN TIME (TEST) 11.9 SECONDS (9.5-11.5)
[2018-03-20] MEDS: INSULIN ASPART SLIDING SCALE 100 UNITS/ML UNIT SUBQ SCH ×4 (08:26→20:53)
[2018-03-20] MEDS: Atorvastatin Calcium 10 MG TAB PO SCH (09:07)
[2018-03-20] MEDS: Calcium Carb/Vit D 500 mg/200 U Tab PO SCH (09:07)
--- NOTE | 2018-03-20 13:32 | Progress Notes ---
DATE: 03/20/2018 SUBJECTIVE: Staff was spoken to. The patient is interviewed. Mood is noted to be irritable. Affect is constricted. Insight and judgment noted to be still impaired. Impulse control seemed to be limited. Coping skills are noted to be limited, but however, the patient is not presenting with any threats to harm self today. No side effects to the medications are noted. ASSESSMENT: The patient's depression is resolving. PLAN: To continue the patient with the supportive therapy, encouraged the patient to verbalize the concerns rather than to act out. JOB# [id number]
--- NOTE | 2018-03-20 16:41 | General Progress Note ---
Subjective - Review of Systems Service Date: 03/20/18 Subjective: awake and alert poor historian denies any complaint Objective - Results Result Diagrams: 03/16/18 12:50 03/16/18 12:50 Recent Labs: Laboratory Last Values WBC 10.3 Th/cmm (4.8-10.8) 03/16/18 12:50 RBC 4.79 Mil/cmm (4.30-5.70) 03/16/18 12:50 Hgb 14.9 gm/dL (12-16) 03/16/18 12:50 Hct 44.7 % (41.0-60) 03/16/18 12:50 MCV 93.3 fl (80-99) 03/16/18 12:50 MCH 31.2 pg (26.0-30.0) H 03/16/18 12:50 MCHC Differential 33.4 pg (28.0-36.0) 03/16/18 12:50 RDW 12.8 % (11.5-20.0) 03/16/18 12:50 Plt Count 220 Th/cmm (150-400) 03/16/18 12:50 MPV 7.9 fl 03/16/18 12:50 Neutrophils % 78.2 % (40.0-80.0) 03/16/18 12:50 Lymphocytes % 13.2 % (20.0-50.0) L 03/16/18 12:50 Monocytes % 7.3 % (2.0-10.0) 03/16/18 12:50 Eosinophils % 1.1 % (0.0-5.0) 03/16/18 12:50 Basophils % 0.2 % (0.0-2.0) 03/16/18 12:50 PT 11.9 SECONDS (9.5-11.5) H 03/20/18 06:47 INR 1.15 (0.5-1.4) 03/20/18 06:47 Sodium 137 mEq/L (136-145) 03/16/18 12:50 Potassium 3.4 mEq/L (3.5-5.1) L 03/16/18 12:50 Chloride 98 mEq/L (98-107) 03/16/18 12:50 Carbon Dioxide 29.4 mEq/L (21.0-31.0) 03/16/18 12:50 Anion Gap 13.0 (7.0-16.0) 03/16/18 12:50 BUN 22 mg/dL (7-25) 03/16/18 12:50 Creatinine 1.1 mg/dL (0.7-1.3) 03/16/18 12:50 Est GFR ( Amer) > 60.0 ml/min (>90) 03/16/18 12:50 Est GFR (Non-Af Amer) > 60.0 ml/min 03/16/18 12:50 BUN/Creatinine Ratio 20.0 03/16/18 12:50 Glucose 119 mg/dL (70-105) H 03/16/18 12:50 POC Glucose 115 MG/DL (70 - 105) H 03/20/18 11:31 Calcium 10.2 mg/dL (8.6-10.3) 03/16/18 12:50 Total Bilirubin 0.8 mg/dL (0.3-1.0) 03/16/18 12:50 AST 12 U/L (13-39) L 03/16/18 12:50 ALT 12 U/L (7-52) 03/16/18 12:50 Alkaline Phosphatase 103 U/L (34-104) 03/16/18 12:50 Troponin I 0.01 ng/mL (0.01-0.05) 03/16/18 12:50 Total Protein 7.2 gm/dL (6.0-8.3) 03/16/18 12:50 Albumin 4.8 gm/dL (4.2-5.5) 03/16/18 12:50 Globulin 2.4 gm/dL 03/16/18 12:50 Albumin/Globulin Ratio 2.0 (1.0-1.8) H 03/16/18 12:50 Triglycerides 90 mg/dL (<150) 03/16/18 12:50 Cholesterol 112 mg/dL (<200) 03/16/18 12:50 LDL Cholesterol Direct 37 mg/dL (75-193) L 03/16/18 12:50 HDL Cholesterol 63 mg/dL (23-92) 03/16/18 12:50 TSH 0.62 uIU/ml (0.34-5.60) 03/16/18 12:50 Urine Source CLEAN C 03/16/18 13:05 Urine Color YELLOW 03/16/18 13:05 Urine Clarity CLEAR (CLEAR) 03/16/18 13:05 Urine pH 5.5 (4.6 - 8.0) 03/16/18 13:05 Ur Specific [place] 1.025 (1.005-1.030) 03/16/18 13:05 Urine Protein NEGATIVE mg/dL (NEGATIVE) 03/16/18 13:05 Urine Glucose (UA) NEGATIVE mg/dL (NEGATIVE) 03/16/18 13:05 Urine Ketones TRACE mg/dL (NEGATIVE) 03/16/18 13:05 Urine Blood NEGATIVE (NEGATIVE) 03/16/18 13:05 Urine Nitrate NEGATIVE (NEGATIVE) 03/16/18 13:05 Urine Bilirubin NEGATIVE (NEGATIVE) 03/16/18 13:05 Urine Urobilinogen 1.0 E.U./dL (0.2 - 1.0) 03/16/18 13:05 Ur Leukocyte Esterase NEGATIVE (NEGATIVE) 03/16/18 13:05 Urine RBC 2-5 /hpf (0-5) H 03/16/18 13:05 Urine WBC 0-2 /hpf (0-5) 03/16/18 13:05 Ur Epithelial Cells OCCASIONAL /lpf (FEW) 03/16/18 13:05 Urine Bacteria FEW /hpf (NONE SEEN) 03/16/18 13:05 Urine Mucus FEW /lpf (FEW) 03/16/18 13:05 Salicylates < 25.0 mg/L (30.0-100.0) L 03/16/18 12:50 Urine Opiates Screen NEGATIVE (NEGATIVE) 03/16/18 13:05 Urine Methadone Screen NEGATIVE (NEGATIVE) 03/16/18 13:05 Acetaminophen < 10.0 ug/mL (10.0-30.0) L 03/16/18 12:50 Ur Barbiturates Screen NEGATIVE (NEGATIVE) 03/16/18 13:05 Ur Tricyclics Screen NEGATIVE (NEGATIVE) 03/16/18 13:05 Ur Phencyclidine Scrn NEGATIVE (NEGATIVE) 03/16/18 13:05 Amphetamines Screen NEGATIVE (NEGATIVE) 03/16/18 13:05 U Methamphetamines Scrn NEGATIVE (NEGATIVE) 03/16/18 13:05 U Benzodiazepines Scrn POSITIVE (NEGATIVE) H 03/16/18 13:05 U Cocaine Metab Screen NEGATIVE (NEGATIVE) 03/16/18 13:05 U Cannabinoids Screen NEGATIVE (NEGATIVE) 03/16/18 13:05 Ethyl Alcohol < 10 mg/dL (0-10) 03/16/18 12:50 - Physical Exam Vitals and I&O: Vital Signs Temp 96.8 F 03/20/18 12:29 Pulse 67 03/20/18 12:29 Resp 18 03/20/18 12:29 BP 109/58 03/20/18 12:29 Pulse Ox 99 03/20/18 12:29 Intake & Output 03/19/18 03/20/18 03/20/18 18:59 06:59 18:59 Intake Total 700 120 Balance 700 120 Weight (lbs) 65.317 kg 65.317 kg Intake: Oral 700 120 Other: # Voids 4 2 # Bowel Movements 0 Weight Source Bedscale Bedscale Active Medications: Current Medications Atorvastatin Calcium (Lipitor) 20 mg PO DAILY [facility] Stop: 05/17/18 08:59 Last Admin: 03/20/18 09:07 Dose: 20 mg Calcium/Vitamin D (Oscal W/Vitamin D) 1 tab PO DAILY [facility] Stop: 05/17/18 08:59 Last Admin: 03/20/18 09:07 Dose: 1 tab Clotrimazole (Lotrimin 1% Cream) 1 appl TP BID [facility] Stop: 05/16/18 16:59 Last Admin: 03/20/18 09:07 Dose: 1 appl Escitalopram Oxalate (Lexapro) 10 mg PO HS [facility] Stop: 05/17/18 12:29 Last Admin: 03/19/18 21:26 Dose: 10 mg Furosemide (Lasix) 20 mg PO DAILY [facility] Stop: 05/17/18 08:59 Last Admin: 03/20/18 09:06 Dose: 20 mg Insulin Aspart (Novolog Insulin Sliding Scale) 0 units SUBQ ACHS [facility]; Protocol Stop: 05/16/18 11:29 Last Admin: 03/20/18 11:50 Dose: Not Given Lisinopril (Zestril) 5 mg PO DAILY [facility] Stop: 05/17/18 08:59 Last Admin: 03/20/18 09:06 Dose: 5 mg Metformin HCl (Glucophage) 500 mg PO BID [facility] Stop: 05/16/18 16:59 Last Admin: 03/20/18 09:06 Dose: 500 mg Trazodone HCl (Desyrel) 25 mg PO HS [facility]; Protocol Stop: 05/17/18 12:29 Last Admin: 03/19/18 21:24 Dose: 25 mg Warfarin Sodium (Coumadin Per Pharmacy) 1 ea [facility] PRN PRN; Protocol PRN Reason: RX MONITORING Stop: 05/16/18 13:51 General: Alert, Oriented x3 HEENT: Atraumatic, PERRLA Neck: Supple, JVD Cardiovascular: Regular rate, Normal S1 Lungs: Clear to auscultation Abdomen: Bowel sounds, Soft Assessment/Plan - Assessment Assessment: 1.HTN. 2.DM. 3.DEPRESSION 4.DVT - Plan Plan: Coumadin dosing still on hold for suicidal ideation d/w pharmacy Nutritional Asmnt/Malnutr-PDOC - Dietary Evaluation Malnutrition Findings (Please click <Entered> for more info): Nutritional Asmnt/Malnutrition Start: 03/20/18 11: 49 Text: Status: Complete Freq: Protocol: Document 03/20/18 11:49 CYDNEY (Rec: 03/20/18 12:06 [email or web address]- [email or web address]) Nutritional Asmnt/Malnutrition Patient General Information Nutritional Screening Moderate Risk Diagnosis Coumadin overdosing Pertinent Medical Hx/Surgical Hx Hypertension, diabetes mellitus, hyperlipidemia, DVT of lower extremity, depression Subjective Information Patient resting at time of visit. Tolerating current diet order without difficulty. Current Diet Order/ Nutrition Support [facility] / S.O Not Indicated Pertinent Medications Lipitor, Oscal W/vitamin D, lasix, novolog, Metformin, Coumadin Pertinent Labs (03/16) K 3.4 Nutritional Hx/Data Height 1.73 m Height (Calculated Centimeters) 172.7 Current Weight (lbs) 65.317 kg Weight (Calculated Kilograms) 65.3 Weight (Calculated Grams) 36906.3 [place] Body Weight 154 % [place] Body Weight 93 Body Mass Index (BMI) 21.9 Recent Weight Change No Weight Status Approriate GI Symptoms GI Symptoms None Last BM 03/18x 1 Difficult in: None Food Allergies No Cultural/Ethnic/Mandaeism Belief None indicated Usual diet at home Unknown Skin Integrity/Comment: Julius 18, Pressure area, reddened Current %PO Good (75-100%) Estimated Nutritional Goals BEE in Kcals: Using Current wt Calories/Kcals/Kg 25-30 kcal/kg using 65.4kg CBW Kcals Calculated ~4007-3440 kcal/day Protein: Using Current wt Protein g/k-1.2 gm/kg - pressure area Protein Calculated ~65-80 gm/day Fluid: ml ~6360-8771 ml/day (1 ml/kcal) Nutritional Problem 1. Problem Problem Altered nutrition related lab values related to Etiology electrolyte imbalance aeb Signs/Symptoms: K 3.4 Intervention/Recommendation Comments 1. Continue 60gm CCHO diet as tolerated by patient due to hx of DM. 2. Encourage oral intake of high potassium foods; MD to supplement lytes as needed Expected Outcomes/Goals Expected Outcomes/Goals Oral intake >75% of meals, weight stable, nutrition related labs/potassium WNL F/U in 7 days as LR 03/27
[2018-03-21] MEDS: INSULIN ASPART SLIDING SCALE 100 UNITS/ML UNIT SUBQ SCH ×4 (06:47→20:45)
[2018-03-21] MEDS: Atorvastatin Calcium 10 MG TAB PO SCH (09:27)
[2018-03-21] MEDS: Calcium Carb/Vit D 500 mg/200 U Tab PO SCH (09:27)
[2018-03-21 14:04] LABS: % BASOPHILS 0.8 % (0.0-2.0); % EOSINOPHILS 0.7 % (0.0-5.0); % LYMPHOCYTES 24.1 % (20.0-50.0); % MONOCYTES 7.1 % (2.0-10.0); % NEUTROPHILS 67.3 % (40.0-80.0); BASOPHILE ABSOLUTE 0.1 Th/cumm (0-0.2); HEMATOCRIT 42.8 % (41.0-60); HEMOGLOBIN 13.9 gm/dL (12-16); LYMPHOCYTE ABSOLUTE 1.6 Th/cmm (1.5-3.0); MEAN CELL VOLUME 94.4 fl (80-99); MEAN CORPUSCULAR HEMOGLOBIN 30.6 pg (26.0-30.0); MEAN CORPUSCULAR HGB CONC 32.4 pg (28.0-36.0); MEAN PLATELET VOLUME 7.5 fl; MONOCYTE ABSOLUTE 0.5 Th/cmm (0.3-1.0); NEUTROPHILE ABSOLUTE 4.6 Th/cmm (1.8-8.0); PLATELET COUNT 200 Th/cmm (150-400); RED BLOOD COUNT 4.53 Mil/cmm (4.30-5.70); RED CELL DISTRIBUTION WIDTH 12.2 % (11.5-20.0); WHITE BLOOD COUNT 6.8 Th/cmm (4.8-10.8)
[2018-03-21 14:14] LABS: INR 1.15 (0.5-1.4); PROTHROMBIN TIME (TEST) 11.9 SECONDS (9.5-11.5)
--- NOTE | 2018-03-21 20:29 | General Progress Note ---
Subjective - Review of Systems Service Date: 03/21/18 Subjective: awake and alert denies any complaint Objective - Results Result Diagrams: 03/21/18 13:50 03/16/18 12:50 Recent Labs: Laboratory Last Values WBC 6.8 Th/cmm (4.8-10.8) 03/21/18 13:50 RBC 4.53 Mil/cmm (4.30-5.70) 03/21/18 13:50 Hgb 13.9 gm/dL (12-16) 03/21/18 13:50 Hct 42.8 % (41.0-60) 03/21/18 13:50 MCV 94.4 fl (80-99) 03/21/18 13:50 MCH 30.6 pg (26.0-30.0) H 03/21/18 13:50 MCHC Differential 32.4 pg (28.0-36.0) 03/21/18 13:50 RDW 12.2 % (11.5-20.0) 03/21/18 13:50 Plt Count 200 Th/cmm (150-400) 03/21/18 13:50 MPV 7.5 fl 03/21/18 13:50 Neutrophils % 67.3 % (40.0-80.0) 03/21/18 13:50 Lymphocytes % 24.1 % (20.0-50.0) 03/21/18 13:50 Monocytes % 7.1 % (2.0-10.0) 03/21/18 13:50 Eosinophils % 0.7 % (0.0-5.0) 03/21/18 13:50 Basophils % 0.8 % (0.0-2.0) 03/21/18 13:50 PT 11.9 SECONDS (9.5-11.5) H 03/21/18 13:50 INR 1.15 (0.5-1.4) 03/21/18 13:50 Sodium 137 mEq/L (136-145) 03/16/18 12:50 Potassium 3.4 mEq/L (3.5-5.1) L 03/16/18 12:50 Chloride 98 mEq/L (98-107) 03/16/18 12:50 Carbon Dioxide 29.4 mEq/L (21.0-31.0) 03/16/18 12:50 Anion Gap 13.0 (7.0-16.0) 03/16/18 12:50 BUN 22 mg/dL (7-25) 03/16/18 12:50 Creatinine 1.1 mg/dL (0.7-1.3) 03/16/18 12:50 Est GFR ( Amer) > 60.0 ml/min (>90) 03/16/18 12:50 Est GFR (Non-Af Amer) > 60.0 ml/min 03/16/18 12:50 BUN/Creatinine Ratio 20.0 03/16/18 12:50 Glucose 119 mg/dL (70-105) H 03/16/18 12:50 POC Glucose 106 MG/DL (70 - 105) H 03/21/18 17:31 Calcium 10.2 mg/dL (8.6-10.3) 03/16/18 12:50 Total Bilirubin 0.8 mg/dL (0.3-1.0) 03/16/18 12:50 AST 12 U/L (13-39) L 03/16/18 12:50 ALT 12 U/L (7-52) 03/16/18 12:50 Alkaline Phosphatase 103 U/L (34-104) 03/16/18 12:50 Troponin I 0.01 ng/mL (0.01-0.05) 03/16/18 12:50 Total Protein 7.2 gm/dL (6.0-8.3) 03/16/18 12:50 Albumin 4.8 gm/dL (4.2-5.5) 03/16/18 12:50 Globulin 2.4 gm/dL 03/16/18 12:50 Albumin/Globulin Ratio 2.0 (1.0-1.8) H 03/16/18 12:50 Triglycerides 90 mg/dL (<150) 03/16/18 12:50 Cholesterol 112 mg/dL (<200) 03/16/18 12:50 LDL Cholesterol Direct 37 mg/dL (75-193) L 03/16/18 12:50 HDL Cholesterol 63 mg/dL (23-92) 03/16/18 12:50 TSH 0.62 uIU/ml (0.34-5.60) 03/16/18 12:50 Urine Source CLEAN C 03/16/18 13:05 Urine Color YELLOW 03/16/18 13:05 Urine Clarity CLEAR (CLEAR) 03/16/18 13:05 Urine pH 5.5 (4.6 - 8.0) 03/16/18 13:05 Ur Specific [place] 1.025 (1.005-1.030) 03/16/18 13:05 Urine Protein NEGATIVE mg/dL (NEGATIVE) 03/16/18 13:05 Urine Glucose (UA) NEGATIVE mg/dL (NEGATIVE) 03/16/18 13:05 Urine Ketones TRACE mg/dL (NEGATIVE) 03/16/18 13:05 Urine Blood NEGATIVE (NEGATIVE) 03/16/18 13:05 Urine Nitrate NEGATIVE (NEGATIVE) 03/16/18 13:05 Urine Bilirubin NEGATIVE (NEGATIVE) 03/16/18 13:05 Urine Urobilinogen 1.0 E.U./dL (0.2 - 1.0) 03/16/18 13:05 Ur Leukocyte Esterase NEGATIVE (NEGATIVE) 03/16/18 13:05 Urine RBC 2-5 /hpf (0-5) H 03/16/18 13:05 Urine WBC 0-2 /hpf (0-5) 03/16/18 13:05 Ur Epithelial Cells OCCASIONAL /lpf (FEW) 03/16/18 13:05 Urine Bacteria FEW /hpf (NONE SEEN) 03/16/18 13:05 Urine Mucus FEW /lpf (FEW) 03/16/18 13:05 Salicylates < 25.0 mg/L (30.0-100.0) L 03/16/18 12:50 Urine Opiates Screen NEGATIVE (NEGATIVE) 03/16/18 13:05 Urine Methadone Screen NEGATIVE (NEGATIVE) 03/16/18 13:05 Acetaminophen < 10.0 ug/mL (10.0-30.0) L 03/16/18 12:50 Ur Barbiturates Screen NEGATIVE (NEGATIVE) 03/16/18 13:05 Ur Tricyclics Screen NEGATIVE (NEGATIVE) 03/16/18 13:05 Ur Phencyclidine Scrn NEGATIVE (NEGATIVE) 03/16/18 13:05 Amphetamines Screen NEGATIVE (NEGATIVE) 03/16/18 13:05 U Methamphetamines Scrn NEGATIVE (NEGATIVE) 03/16/18 13:05 U Benzodiazepines Scrn POSITIVE (NEGATIVE) H 03/16/18 13:05 U Cocaine Metab Screen NEGATIVE (NEGATIVE) 03/16/18 13:05 U Cannabinoids Screen NEGATIVE (NEGATIVE) 03/16/18 13:05 Ethyl Alcohol < 10 mg/dL (0-10) 03/16/18 12:50 - Physical Exam Vitals and I&O: Vital Signs Temp 98.1 F 03/21/18 16:29 Pulse 84 03/21/18 16:29 Resp 18 03/21/18 16:29 BP 124/69 03/21/18 16:29 Pulse Ox 98 03/21/18 16:29 Intake & Output 03/21/18 03/21/18 03/22/18 06:59 18:59 06:59 Intake Total 650 500 Balance 650 500 Weight (lbs) 65.317 kg 65.317 kg Intake: Oral 650 500 Other: # Voids 3 3 # Bowel Movements 1 Weight Source Bedscale Bedscale Active Medications: Current Medications Atorvastatin Calcium (Lipitor) 20 mg PO DAILY [facility] Stop: 05/17/18 08:59 Last Admin: 03/21/18 09:27 Dose: Not Given Calcium/Vitamin D (Oscal W/Vitamin D) 1 tab PO DAILY [facility] Stop: 05/17/18 08:59 Last Admin: 03/21/18 09:27 Dose: Not Given Clotrimazole (Lotrimin 1% Cream) 1 appl TP BID [facility] Stop: 05/16/18 16:59 Last Admin: 03/21/18 16:21 Dose: 1 appl Escitalopram Oxalate (Lexapro) 10 mg PO HS [facility] Stop: 05/17/18 12:29 Last Admin: 03/20/18 20:54 Dose: 10 mg Furosemide (Lasix) 20 mg PO DAILY [facility] Stop: 05/17/18 08:59 Last Admin: 03/21/18 09:27 Dose: Not Given Insulin Aspart (Novolog Insulin Sliding Scale) 0 units SUBQ ACHS [facility]; Protocol Stop: 05/16/18 11:29 Last Admin: 03/21/18 17:35 Dose: Not Given Lisinopril (Zestril) 5 mg PO DAILY [facility] Stop: 05/17/18 08:59 Last Admin: 03/21/18 09:27 Dose: Not Given Metformin HCl (Glucophage) 500 mg PO BID GABBY Stop: 05/16/18 16:59 Last Admin: 03/21/18 16:22 Dose: 500 mg Trazodone HCl (Desyrel) 25 mg PO HS GABBY; Protocol Stop: 05/17/18 12:29 Last Admin: 03/20/18 20:54 Dose: 25 mg Warfarin Sodium (Coumadin Per Pharmacy) 1 ea PRN PRN; Protocol PRN Reason: RX MONITORING Stop: 05/16/18 13:51 General: Alert, Oriented x3 HEENT: Atraumatic, PERRLA Neck: Supple, JVD Cardiovascular: Regular rate, Normal S1 Lungs: Clear to auscultation Abdomen: Bowel sounds, Soft Assessment/Plan - Assessment Assessment: 1.HTN. 2.DM. 3.DEPRESSION 4.DVT - Plan Plan: Coumadin dosing still on hold for suicidal ideation monitor INR Nutritional Asmnt/Malnutr-PDOC - Dietary Evaluation Malnutrition Findings (Please click <Entered> for more info): Nutritional Asmnt/Malnutrition Start: 03/20/18 11: 49 Text: Status: Complete Freq: Protocol: Document 03/20/18 11:49 CYDNEY (Rec: 03/20/18 12:06 [email or web address]- [email or web address]) Nutritional Asmnt/Malnutrition Patient General Information Nutritional Screening Moderate Risk Diagnosis Coumadin overdosing Pertinent Medical Hx/Surgical Hx Hypertension, diabetes mellitus, hyperlipidemia, DVT of lower extremity, depression Subjective Information Patient resting at time of visit. Tolerating current diet order without difficulty. Current Diet Order/ Nutrition Support 60gm CCHO Patient / S.O Not Indicated Pertinent Medications Lipitor, Oscal W/vitamin D, lasix, novolog, Metformin, Coumadin Pertinent Labs (03/16) K 3.4 Nutritional Hx/Data Height 1.73 m Height (Calculated Centimeters) 172.7 Current Weight (lbs) 65.317 kg Weight (Calculated Kilograms) 65.3 Weight (Calculated Grams) 28776.3 [place] Body Weight 154 % [place] Body Weight 93 Body Mass Index (BMI) 21.9 Recent Weight Change No Weight Status Approriate GI Symptoms GI Symptoms None Last BM 03/18x 1 Difficult in: None Food Allergies No Cultural/Ethnic/M[employer]on Belief None indicated Usual diet at home Unknown Skin Integrity/Comment: Julius 18, Pressure area, reddened Current %PO Good (75-100%) Estimated Nutritional Goals BEE in Kcals: Using Current wt Calories/Kcals/Kg 25-30 kcal/kg using 65.4kg CBW Kcals Calculated ~2382-3253 kcal/day Protein: Using Current wt Protein g/k-1.2 gm/kg - pressure area Protein Calculated ~65-80 gm/day Fluid: ml ~4167-2652 ml/day (1 ml/kcal) Nutritional Problem 1. Problem Problem Altered nutrition related lab values related to Etiology electrolyte imbalance aeb Signs/Symptoms: K 3.4 Intervention/Recommendation Comments 1. Continue 60gm CCHO diet as tolerated by patient due to hx of DM. 2. Encourage oral intake of high potassium foods; MD to supplement lytes as needed Expected Outcomes/Goals Expected Outcomes/Goals Oral intake >75% of meals, weight stable, nutrition related labs/potassium WNL F/U in 7 days as LR 03/27
[2018-03-22 05:47] LABS: INR 1.14 (0.5-1.4); PROTHROMBIN TIME (TEST) 11.8 SECONDS (9.5-11.5)
[2018-03-22] MEDS: INSULIN ASPART SLIDING SCALE 100 UNITS/ML UNIT SUBQ SCH ×4 (07:09→20:49)
[2018-03-22] MEDS: Calcium Carb/Vit D 500 mg/200 U Tab PO SCH (09:28)
[2018-03-22] MEDS: Atorvastatin Calcium 10 MG TAB PO SCH (09:28)
--- NOTE | 2018-03-22 19:30 | Internal Medicine Prog Note ---
Internal Medicine Subjective - Subjective Service Date: 03/22/18 Patient seen and examined:: with staff (HE FEELS BETTER,LESS ABDOMINAL PAIN.) Patient is:: awake, verbal, in bed, talking Per staff patient has:: no adverse event Internal Medicine Objective - Results Result Diagrams: 03/21/18 13:50 03/16/18 12:50 Recent Labs: Laboratory Last Values WBC 6.8 Th/cmm (4.8-10.8) 03/21/18 13:50 RBC 4.53 Mil/cmm (4.30-5.70) 03/21/18 13:50 Hgb 13.9 gm/dL (12-16) 03/21/18 13:50 Hct 42.8 % (41.0-60) 03/21/18 13:50 MCV 94.4 fl (80-99) 03/21/18 13:50 MCH 30.6 pg (26.0-30.0) H 03/21/18 13:50 MCHC Differential 32.4 pg (28.0-36.0) 03/21/18 13:50 RDW 12.2 % (11.5-20.0) 03/21/18 13:50 Plt Count 200 Th/cmm (150-400) 03/21/18 13:50 MPV 7.5 fl 03/21/18 13:50 Neutrophils % 67.3 % (40.0-80.0) 03/21/18 13:50 Lymphocytes % 24.1 % (20.0-50.0) 03/21/18 13:50 Monocytes % 7.1 % (2.0-10.0) 03/21/18 13:50 Eosinophils % 0.7 % (0.0-5.0) 03/21/18 13:50 Basophils % 0.8 % (0.0-2.0) 03/21/18 13:50 PT 11.8 SECONDS (9.5-11.5) H 03/22/18 04:55 INR 1.14 (0.5-1.4) 03/22/18 04:55 Sodium 137 mEq/L (136-145) 03/16/18 12:50 Potassium 3.4 mEq/L (3.5-5.1) L 03/16/18 12:50 Chloride 98 mEq/L (98-107) 03/16/18 12:50 Carbon Dioxide 29.4 mEq/L (21.0-31.0) 03/16/18 12:50 Anion Gap 13.0 (7.0-16.0) 03/16/18 12:50 BUN 22 mg/dL (7-25) 03/16/18 12:50 Creatinine 1.1 mg/dL (0.7-1.3) 03/16/18 12:50 Est GFR ( Amer) > 60.0 ml/min (>90) 03/16/18 12:50 Est GFR (Non-Af Amer) > 60.0 ml/min 03/16/18 12:50 BUN/Creatinine Ratio 20.0 03/16/18 12:50 Glucose 119 mg/dL (70-105) H 03/16/18 12:50 POC Glucose 107 MG/DL (70 - 105) H 03/22/18 17:34 Calcium 10.2 mg/dL (8.6-10.3) 03/16/18 12:50 Total Bilirubin 0.8 mg/dL (0.3-1.0) 03/16/18 12:50 AST 12 U/L (13-39) L 03/16/18 12:50 ALT 12 U/L (7-52) 03/16/18 12:50 Alkaline Phosphatase 103 U/L (34-104) 03/16/18 12:50 Troponin I 0.01 ng/mL (0.01-0.05) 03/16/18 12:50 Total Protein 7.2 gm/dL (6.0-8.3) 03/16/18 12:50 Albumin 4.8 gm/dL (4.2-5.5) 03/16/18 12:50 Globulin 2.4 gm/dL 03/16/18 12:50 Albumin/Globulin Ratio 2.0 (1.0-1.8) H 03/16/18 12:50 Triglycerides 90 mg/dL (<150) 03/16/18 12:50 Cholesterol 112 mg/dL (<200) 03/16/18 12:50 LDL Cholesterol Direct 37 mg/dL (75-193) L 03/16/18 12:50 HDL Cholesterol 63 mg/dL (23-92) 03/16/18 12:50 TSH 0.62 uIU/ml (0.34-5.60) 03/16/18 12:50 Urine Source CLEAN C 03/16/18 13:05 Urine Color YELLOW 03/16/18 13:05 Urine Clarity CLEAR (CLEAR) 03/16/18 13:05 Urine pH 5.5 (4.6 - 8.0) 03/16/18 13:05 Ur Specific [place] 1.025 (1.005-1.030) 03/16/18 13:05 Urine Protein NEGATIVE mg/dL (NEGATIVE) 03/16/18 13:05 Urine Glucose (UA) NEGATIVE mg/dL (NEGATIVE) 03/16/18 13:05 Urine Ketones TRACE mg/dL (NEGATIVE) 03/16/18 13:05 Urine Blood NEGATIVE (NEGATIVE) 03/16/18 13:05 Urine Nitrate NEGATIVE (NEGATIVE) 03/16/18 13:05 Urine Bilirubin NEGATIVE (NEGATIVE) 03/16/18 13:05 Urine Urobilinogen 1.0 E.U./dL (0.2 - 1.0) 03/16/18 13:05 Ur Leukocyte Esterase NEGATIVE (NEGATIVE) 03/16/18 13:05 Urine RBC 2-5 /hpf (0-5) H 03/16/18 13:05 Urine WBC 0-2 /hpf (0-5) 03/16/18 13:05 Ur Epithelial Cells OCCASIONAL /lpf (FEW) 03/16/18 13:05 Urine Bacteria FEW /hpf (NONE SEEN) 03/16/18 13:05 Urine Mucus FEW /lpf (FEW) 03/16/18 13:05 Salicylates < 25.0 mg/L (30.0-100.0) L 03/16/18 12:50 Urine Opiates Screen NEGATIVE (NEGATIVE) 03/16/18 13:05 Urine Methadone Screen NEGATIVE (NEGATIVE) 03/16/18 13:05 Acetaminophen < 10.0 ug/mL (10.0-30.0) L 03/16/18 12:50 Ur Barbiturates Screen NEGATIVE (NEGATIVE) 03/16/18 13:05 Ur Tricyclics Screen NEGATIVE (NEGATIVE) 03/16/18 13:05 Ur Phencyclidine Scrn NEGATIVE (NEGATIVE) 03/16/18 13:05 Amphetamines Screen NEGATIVE (NEGATIVE) 03/16/18 13:05 U Methamphetamines Scrn NEGATIVE (NEGATIVE) 03/16/18 13:05 U Benzodiazepines Scrn POSITIVE (NEGATIVE) H 03/16/18 13:05 U Cocaine Metab Screen NEGATIVE (NEGATIVE) 03/16/18 13:05 U Cannabinoids Screen NEGATIVE (NEGATIVE) 03/16/18 13:05 Ethyl Alcohol < 10 mg/dL (0-10) 03/16/18 12:50 - Physical Exam Vitals and I&O: Vital Signs Temp 98.8 F 03/22/18 17:00 Pulse 92 03/22/18 17:00 Resp 18 03/22/18 17:00 BP 112/69 03/22/18 17:00 Pulse Ox 96 03/22/18 17:00 Intake & Output 03/22/18 03/22/18 03/23/18 06:59 18:59 06:59 Intake Total 360 500 Output Total 2 Balance 358 500 Weight (lbs) 64.954 kg 64.41 kg Intake: Oral 360 500 Output: Urine 2 Other: # Voids 3 # Bowel Movements 1 Weight Source Bedscale Bedscale Active Medications: Current Medications Atorvastatin Calcium (Lipitor) 20 mg PO DAILY [facility] Stop: 05/17/18 08:59 Last Admin: 03/22/18 09:28 Dose: 20 mg Calcium/Vitamin D (Oscal W/Vitamin D) 1 tab PO DAILY [facility] Stop: 05/17/18 08:59 Last Admin: 03/22/18 09:28 Dose: 1 tab Clotrimazole (Lotrimin 1% Cream) 1 appl TP BID [facility] Stop: 05/16/18 16:59 Last Admin: 03/22/18 17:42 Dose: 1 appl Escitalopram Oxalate (Lexapro) 10 mg PO HS [facility] Stop: 05/17/18 12:29 Last Admin: 03/21/18 20:43 Dose: 10 mg Furosemide (Lasix) 20 mg PO DAILY [facility] Stop: 05/17/18 08:59 Last Admin: 03/22/18 09:28 Dose: 20 mg Insulin Aspart (Novolog Insulin Sliding Scale) 0 units SUBQ ACHS [facility]; Protocol Stop: 05/16/18 11:29 Last Admin: 03/22/18 17:41 Dose: Not Given Lisinopril (Zestril) 5 mg PO DAILY [facility] Stop: 05/17/18 08:59 Last Admin: 03/22/18 09:29 Dose: 5 mg Metformin HCl (Glucophage) 500 mg PO BID [facility] Stop: 05/16/18 16:59 Last Admin: 03/22/18 17:43 Dose: 500 mg Trazodone HCl (Desyrel) 25 mg PO HS [facility]; Protocol Stop: 05/17/18 12:29 Last Admin: 03/21/18 20:43 Dose: 25 mg Warfarin Sodium (Coumadin Per Pharmacy) 1 ea PRN PRN; Protocol PRN Reason: RX MONITORING Stop: 05/16/18 13:51 General: alert HEENT: NC/AT, PERRLA, EOMI, anicteric sclerae, throat clear Neck: Supple, No JVD, No thyromegaly, +2 carotid pulse wo bruit, No LAD Lungs: CTAB Cardiovascular: Normal S1, Normal S2, without murmur Abdomen: non-tender, non-distended Neurological: no change Internal Medicine Assmt/Plan - Assessment Assessment: 1.HTN. 2.DM. 3.DEPRESSION - Plan Plan: CONTINUE ON CURRENT MEDICATION AND DIET. Nutritional Asmnt/Malnutr-PDOC - Dietary Evaluation Malnutrition Findings (Please click <Entered> for more info): Nutritional Asmnt/Malnutrition Start: 03/20/18 11: 49 Text: Status: Complete Freq: Protocol: Document 03/20/18 11:49 CYDNEY (Rec: 03/20/18 12:06 CYDNEY [email or web address]- [email or web address]) Nutritional Asmnt/Malnutrition Patient General Information Nutritional Screening Moderate Risk Diagnosis Coumadin overdosing Pertinent Medical Hx/Surgical Hx Hypertension, diabetes mellitus, hyperlipidemia, DVT of lower extremity, depression Subjective Information Patient resting at time of visit. Tolerating current diet order without difficulty. Current Diet Order/ Nutrition Support 60gm [facility] Patient / S.O Not Indicated Pertinent Medications Lipitor, Oscal W/vitamin D, lasix, novolog, Metformin, Coumadin Pertinent Labs (03/16) K 3.4 Nutritional Hx/Data Height 1.73 m Height (Calculated Centimeters) 172.7 Current Weight (lbs) 65.317 kg Weight (Calculated Kilograms) 65.3 Weight (Calculated Grams) 40546.3 [place] Body Weight 154 % [place] Body Weight 93 Body Mass Index (BMI) 21.9 Recent Weight Change No Weight Status Approriate GI Symptoms GI Symptoms None Last BM 03/18x 1 Difficult in: None Food Allergies No Cultural/Ethnic/Rastafarian Belief None indicated Usual diet at home Unknown Skin Integrity/Comment: Julius 18, Pressure area, reddened Current %PO Good (75-100%) Estimated Nutritional Goals BEE in Kcals: Using Current wt Calories/Kcals/Kg 25-30 kcal/kg using 65.4kg CBW Kcals Calculated ~7719-0906 kcal/day Protein: Using Current wt Protein g/k-1.2 gm/kg - pressure area Protein Calculated ~65-80 gm/day Fluid: ml ~4942-5748 ml/day (1 ml/kcal) Nutritional Problem 1. Problem Problem Altered nutrition related lab values related to Etiology electrolyte imbalance aeb Signs/Symptoms: K 3.4 Intervention/Recommendation Comments 1. Continue 60gm CCHO diet as tolerated by patient due to hx of DM. 2. Encourage oral intake of high potassium foods; MD to supplement lytes as needed Expected Outcomes/Goals Expected Outcomes/Goals Oral intake >75% of meals, weight stable, nutrition related labs/potassium WNL F/U in 7 days as LR 03/27
[2018-03-23 05:51] LABS: INR 1.57 (0.5-1.4)
[2018-03-23] MEDS: INSULIN ASPART SLIDING SCALE 100 UNITS/ML UNIT SUBQ SCH ×4 (06:34→21:14)
[2018-03-23] MEDS: Calcium Carb/Vit D 500 mg/200 U Tab PO SCH (08:46)
[2018-03-23] MEDS: Atorvastatin Calcium 10 MG TAB PO SCH (08:46)
--- NOTE | 2018-03-23 13:31 | Internal Medicine Prog Note ---
Internal Medicine Subjective - Subjective Service Date: 03/23/18 Patient seen and examined:: with staff Patient is:: awake, verbal, in bed, talking Per staff patient has:: no adverse event Internal Medicine Objective - Results Result Diagrams: 03/21/18 13:50 03/16/18 12:50 Recent Labs: Laboratory Last Values WBC 6.8 Th/cmm (4.8-10.8) 03/21/18 13:50 RBC 4.53 Mil/cmm (4.30-5.70) 03/21/18 13:50 Hgb 13.9 gm/dL (12-16) 03/21/18 13:50 Hct 42.8 % (41.0-60) 03/21/18 13:50 MCV 94.4 fl (80-99) 03/21/18 13:50 MCH 30.6 pg (26.0-30.0) H 03/21/18 13:50 MCHC Differential 32.4 pg (28.0-36.0) 03/21/18 13:50 RDW 12.2 % (11.5-20.0) 03/21/18 13:50 Plt Count 200 Th/cmm (150-400) 03/21/18 13:50 MPV 7.5 fl 03/21/18 13:50 Neutrophils % 67.3 % (40.0-80.0) 03/21/18 13:50 Lymphocytes % 24.1 % (20.0-50.0) 03/21/18 13:50 Monocytes % 7.1 % (2.0-10.0) 03/21/18 13:50 Eosinophils % 0.7 % (0.0-5.0) 03/21/18 13:50 Basophils % 0.8 % (0.0-2.0) 03/21/18 13:50 PT 16.0 SECONDS (9.5-11.5) H 03/23/18 04:45 INR 1.57 (0.5-1.4) H 03/23/18 04:45 Sodium 137 mEq/L (136-145) 03/16/18 12:50 Potassium 3.4 mEq/L (3.5-5.1) L 03/16/18 12:50 Chloride 98 mEq/L (98-107) 03/16/18 12:50 Carbon Dioxide 29.4 mEq/L (21.0-31.0) 03/16/18 12:50 Anion Gap 13.0 (7.0-16.0) 03/16/18 12:50 BUN 22 mg/dL (7-25) 03/16/18 12:50 Creatinine 1.1 mg/dL (0.7-1.3) 03/16/18 12:50 Est GFR ( Amer) > 60.0 ml/min (>90) 03/16/18 12:50 Est GFR (Non-Af Amer) > 60.0 ml/min 03/16/18 12:50 BUN/Creatinine Ratio 20.0 03/16/18 12:50 Glucose 119 mg/dL (70-105) H 03/16/18 12:50 POC Glucose 108 MG/DL (70 - 105) H 03/23/18 11:59 Calcium 10.2 mg/dL (8.6-10.3) 03/16/18 12:50 Total Bilirubin 0.8 mg/dL (0.3-1.0) 03/16/18 12:50 AST 12 U/L (13-39) L 03/16/18 12:50 ALT 12 U/L (7-52) 03/16/18 12:50 Alkaline Phosphatase 103 U/L (34-104) 03/16/18 12:50 Troponin I 0.01 ng/mL (0.01-0.05) 03/16/18 12:50 Total Protein 7.2 gm/dL (6.0-8.3) 03/16/18 12:50 Albumin 4.8 gm/dL (4.2-5.5) 03/16/18 12:50 Globulin 2.4 gm/dL 03/16/18 12:50 Albumin/Globulin Ratio 2.0 (1.0-1.8) H 03/16/18 12:50 Triglycerides 90 mg/dL (<150) 03/16/18 12:50 Cholesterol 112 mg/dL (<200) 03/16/18 12:50 LDL Cholesterol Direct 37 mg/dL (75-193) L 03/16/18 12:50 HDL Cholesterol 63 mg/dL (23-92) 03/16/18 12:50 TSH 0.62 uIU/ml (0.34-5.60) 03/16/18 12:50 Urine Source CLEAN C 03/16/18 13:05 Urine Color YELLOW 03/16/18 13:05 Urine Clarity CLEAR (CLEAR) 03/16/18 13:05 Urine pH 5.5 (4.6 - 8.0) 03/16/18 13:05 Ur Specific [place] 1.025 (1.005-1.030) 03/16/18 13:05 Urine Protein NEGATIVE mg/dL (NEGATIVE) 03/16/18 13:05 Urine Glucose (UA) NEGATIVE mg/dL (NEGATIVE) 03/16/18 13:05 Urine Ketones TRACE mg/dL (NEGATIVE) 03/16/18 13:05 Urine Blood NEGATIVE (NEGATIVE) 03/16/18 13:05 Urine Nitrate NEGATIVE (NEGATIVE) 03/16/18 13:05 Urine Bilirubin NEGATIVE (NEGATIVE) 03/16/18 13:05 Urine Urobilinogen 1.0 E.U./dL (0.2 - 1.0) 03/16/18 13:05 Ur Leukocyte Esterase NEGATIVE (NEGATIVE) 03/16/18 13:05 Urine RBC 2-5 /hpf (0-5) H 03/16/18 13:05 Urine WBC 0-2 /hpf (0-5) 03/16/18 13:05 Ur Epithelial Cells OCCASIONAL /lpf (FEW) 03/16/18 13:05 Urine Bacteria FEW /hpf (NONE SEEN) 03/16/18 13:05 Urine Mucus FEW /lpf (FEW) 03/16/18 13:05 Salicylates < 25.0 mg/L (30.0-100.0) L 03/16/18 12:50 Urine Opiates Screen NEGATIVE (NEGATIVE) 03/16/18 13:05 Urine Methadone Screen NEGATIVE (NEGATIVE) 03/16/18 13:05 Acetaminophen < 10.0 ug/mL (10.0-30.0) L 03/16/18 12:50 Ur Barbiturates Screen NEGATIVE (NEGATIVE) 03/16/18 13:05 Ur Tricyclics Screen NEGATIVE (NEGATIVE) 03/16/18 13:05 Ur Phencyclidine Scrn NEGATIVE (NEGATIVE) 03/16/18 13:05 Amphetamines Screen NEGATIVE (NEGATIVE) 03/16/18 13:05 U Methamphetamines Scrn NEGATIVE (NEGATIVE) 03/16/18 13:05 U Benzodiazepines Scrn POSITIVE (NEGATIVE) H 03/16/18 13:05 U Cocaine Metab Screen NEGATIVE (NEGATIVE) 03/16/18 13:05 U Cannabinoids Screen NEGATIVE (NEGATIVE) 03/16/18 13:05 Ethyl Alcohol < 10 mg/dL (0-10) 03/16/18 12:50 - Physical Exam Vitals and I&O: Vital Signs Temp 98.5 F 03/23/18 08:00 Pulse 68 03/23/18 08:47 Resp 18 03/23/18 08:00 BP 91/61 03/23/18 08:47 Pulse Ox 97 03/23/18 08:00 Intake & Output 03/22/18 03/23/18 03/23/18 18:59 06:59 18:59 Intake Total 500 250 Output Total 2000 Balance 500 -1750 Weight (lbs) 64.41 kg 64.41 kg Intake: Oral 500 250 Output: Urine 2000 Other: # Voids 3 # Bowel Movements 1 Weight Source Bedscale Bedscale Active Medications: Current Medications Atorvastatin Calcium (Lipitor) 20 mg PO DAILY [facility] Stop: 05/17/18 08:59 Last Admin: 03/23/18 08:46 Dose: 20 mg Calcium/Vitamin D (Oscal W/Vitamin D) 1 tab PO DAILY [facility] Stop: 05/17/18 08:59 Last Admin: 03/23/18 08:46 Dose: 1 tab Clotrimazole (Lotrimin 1% Cream) 1 appl TP BID GABBY Stop: 05/16/18 16:59 Last Admin: 03/23/18 08:46 Dose: 1 appl Escitalopram Oxalate (Lexapro) 10 mg PO HS G[facility]BY Stop: 05/17/18 12:29 Last Admin: 03/22/18 20:57 Dose: 10 mg Furosemide (Lasix) 20 mg PO DAILY [facility] Stop: 05/17/18 08:59 Last Admin: 03/23/18 08:46 Dose: Not Given Insulin Aspart (Novolog Insulin Sliding Scale) 0 units SUBQ ACHS [facility]; Protocol Stop: 05/16/18 11:29 Last Admin: 03/23/18 13:06 Dose: Not Given Lisinopril (Zestril) 5 mg PO DAILY GABBY Stop: 05/17/18 08:59 Last Admin: 03/23/18 08:47 Dose: Not Given Metformin HCl (Glucophage) 500 mg PO BID GABBY Stop: 05/16/18 16:59 Last Admin: 03/23/18 08:46 Dose: 500 mg Ondansetron HCl (Zofran) 4 mg IV Q6H PRN PRN Reason: Nausea / Vomiting Stop: 05/21/18 19:33 Last Admin: 03/22/18 20:32 Dose: 4 mg Trazodone HCl (Desyrel) 25 mg PO HS [facility]; Protocol Stop: 05/17/18 12:29 Last Admin: 03/22/18 20:57 Dose: 25 mg Warfarin Sodium (Coumadin Per Pharmacy) 1 ea PRN PRN; Protocol PRN Reason: RX MONITORING Stop: 05/16/18 13:51 General: alert HEENT: NC/AT, PERRLA, EOMI, anicteric sclerae, throat clear Neck: Supple, No JVD, No thyromegaly, +2 carotid pulse wo bruit, No LAD Lungs: CTAB Cardiovascular: Normal S1, Normal S2, without murmur Abdomen: non-tender, non-distended Neurological: no change Internal Medicine Assmt/Plan - Assessment Assessment: 1.HTN. 2.DM. 3.DEPRESSION - Plan Plan: CONTINUE ON CURRENT MEDICATION AND DIET. Nutritional Asmnt/Malnutr-PDOC - Dietary Evaluation Malnutrition Findings (Please click <Entered> for more info): Nutritional Asmnt/Malnutrition Start: 03/20/18 11: 49 Text: Status: Complete Freq: Protocol: Document 03/20/18 11:49 CYDNEY (Rec: 03/20/18 12:06 [email or web address]- [email or web address]) Nutritional Asmnt/Malnutrition Patient General Information Nutritional Screening Moderate Risk Diagnosis Coumadin overdosing Pertinent Medical Hx/Surgical Hx Hypertension, diabetes mellitus, hyperlipidemia, DVT of lower extremity, depression Subjective Information Patient resting at time of visit. Tolerating current diet order without difficulty. Current Diet Order/ Nutrition Support 60gm CCHO Patient / S.O Not Indicated Pertinent Medications Lipitor, Oscal W/vitamin D, lasix, novolog, Metformin, Coumadin Pertinent Labs (03/16) K 3.4 Nutritional Hx/Data Height 1.73 m Height (Calculated Centimeters) 172.7 Current Weight (lbs) 65.317 kg Weight (Calculated Kilograms) 65.3 Weight (Calculated Grams) 42946.3 [place] Body Weight 154 % [place] Body Weight 93 Body Mass Index (BMI) 21.9 Recent Weight Change No Weight Status Approriate GI Symptoms GI Symptoms None Last BM 03/18x 1 Difficult in: None Food Allergies No Cultural/Ethnic/Adventist Belief None indicated Usual diet at home Unknown Skin Integrity/Comment: Julius 18, Pressure area, reddened Current %PO Good (75-100%) Estimated Nutritional Goals BEE in Kcals: Using Current wt Calories/Kcals/Kg 25-30 kcal/kg using 65.4kg CBW Kcals Calculated ~9003-5751 kcal/day Protein: Using Current wt Protein g/k-1.2 gm/kg - pressure area Protein Calculated ~65-80 gm/day Fluid: ml ~9574-4156 ml/day (1 ml/kcal) Nutritional Problem 1. Problem Problem Altered nutrition related lab values related to Etiology electrolyte imbalance aeb Signs/Symptoms: K 3.4 Intervention/Recommendation Comments 1. Continue 60gm CCHO diet as tolerated by patient due to hx of DM. 2. Encourage oral intake of high potassium foods; to supplement lytes as needed Expected Outcomes/Goals Expected Outcomes/Goals Oral intake >75% of meals, weight stable, nutrition related labs/potassium WNL F/U in 7 days as LR 03/27
--- NOTE | 2018-03-23 23:23 | Progress Notes ---
DATE: 03/23/2018 SUBJECTIVE: Staff was spoken to. The patient is interviewed. Mood is noted to be anxious. Insight and judgment are noted to be fair. Impulse control is also noted to be fair at this time. The patient is stating that it was a mistake on his part that he took the medication. The patient is not presenting with any suicidal or homicidal ideations. Since the patient has been having displaying impulsive behavior, it is decided the wrapper caser is requested to be getting in touch with the family members, so that they can monitor the medications. JOB# [id number]
[2018-03-24] MEDS: INSULIN ASPART SLIDING SCALE 100 UNITS/ML UNIT SUBQ SCH ×4 (06:50→20:25)
[2018-03-24 07:28] LABS: INR 1.76 (0.5-1.4); PROTHROMBIN TIME (TEST) 17.8 SECONDS (9.5-11.5)
[2018-03-24] MEDS: Calcium Carb/Vit D 500 mg/200 U Tab PO SCH (08:51)
[2018-03-24] MEDS: Atorvastatin Calcium 10 MG TAB PO SCH (08:53)
--- NOTE | 2018-03-24 22:35 | Internal Medicine Prog Note ---
Internal Medicine Subjective - Subjective Service Date: 03/24/18 Patient seen and examined:: with staff Patient is:: awake, verbal, in bed, talking Per staff patient has:: no adverse event Internal Medicine Objective - Results Result Diagrams: 03/21/18 13:50 03/16/18 12:50 Recent Labs: Laboratory Last Values WBC 6.8 Th/cmm (4.8-10.8) 03/21/18 13:50 RBC 4.53 Mil/cmm (4.30-5.70) 03/21/18 13:50 Hgb 13.9 gm/dL (12-16) 03/21/18 13:50 Hct 42.8 % (41.0-60) 03/21/18 13:50 MCV 94.4 fl (80-99) 03/21/18 13:50 MCH 30.6 pg (26.0-30.0) H 03/21/18 13:50 MCHC Differential 32.4 pg (28.0-36.0) 03/21/18 13:50 RDW 12.2 % (11.5-20.0) 03/21/18 13:50 Plt Count 200 Th/cmm (150-400) 03/21/18 13:50 MPV 7.5 fl 03/21/18 13:50 Neutrophils % 67.3 % (40.0-80.0) 03/21/18 13:50 Lymphocytes % 24.1 % (20.0-50.0) 03/21/18 13:50 Monocytes % 7.1 % (2.0-10.0) 03/21/18 13:50 Eosinophils % 0.7 % (0.0-5.0) 03/21/18 13:50 Basophils % 0.8 % (0.0-2.0) 03/21/18 13:50 PT 17.8 SECONDS (9.5-11.5) H 03/24/18 05:37 INR 1.76 (0.5-1.4) H 03/24/18 05:37 Sodium 137 mEq/L (136-145) 03/16/18 12:50 Potassium 3.4 mEq/L (3.5-5.1) L 03/16/18 12:50 Chloride 98 mEq/L (98-107) 03/16/18 12:50 Carbon Dioxide 29.4 mEq/L (21.0-31.0) 03/16/18 12:50 Anion Gap 13.0 (7.0-16.0) 03/16/18 12:50 BUN 22 mg/dL (7-25) 03/16/18 12:50 Creatinine 1.1 mg/dL (0.7-1.3) 03/16/18 12:50 Est GFR ( Amer) > 60.0 ml/min (>90) 03/16/18 12:50 Est GFR (Non-Af Amer) > 60.0 ml/min 03/16/18 12:50 BUN/Creatinine Ratio 20.0 03/16/18 12:50 Glucose 119 mg/dL (70-105) H 03/16/18 12:50 POC Glucose 94 MG/DL (70 - 105) 03/24/18 06:49 Calcium 10.2 mg/dL (8.6-10.3) 03/16/18 12:50 Total Bilirubin 0.8 mg/dL (0.3-1.0) 03/16/18 12:50 AST 12 U/L (13-39) L 03/16/18 12:50 ALT 12 U/L (7-52) 03/16/18 12:50 Alkaline Phosphatase 103 U/L (34-104) 03/16/18 12:50 Troponin I 0.01 ng/mL (0.01-0.05) 03/16/18 12:50 Total Protein 7.2 gm/dL (6.0-8.3) 03/16/18 12:50 Albumin 4.8 gm/dL (4.2-5.5) 03/16/18 12:50 Globulin 2.4 gm/dL 03/16/18 12:50 Albumin/Globulin Ratio 2.0 (1.0-1.8) H 03/16/18 12:50 Triglycerides 90 mg/dL (<150) 03/16/18 12:50 Cholesterol 112 mg/dL (<200) 03/16/18 12:50 LDL Cholesterol Direct 37 mg/dL (75-193) L 03/16/18 12:50 HDL Cholesterol 63 mg/dL (23-92) 03/16/18 12:50 TSH 0.62 uIU/ml (0.34-5.60) 03/16/18 12:50 Urine Source CLEAN C 03/16/18 13:05 Urine Color YELLOW 03/16/18 13:05 Urine Clarity CLEAR (CLEAR) 03/16/18 13:05 Urine pH 5.5 (4.6 - 8.0) 03/16/18 13:05 Ur Specific [place] 1.025 (1.005-1.030) 03/16/18 13:05 Urine Protein NEGATIVE mg/dL (NEGATIVE) 03/16/18 13:05 Urine Glucose (UA) NEGATIVE mg/dL (NEGATIVE) 03/16/18 13:05 Urine Ketones TRACE mg/dL (NEGATIVE) 03/16/18 13:05 Urine Blood NEGATIVE (NEGATIVE) 03/16/18 13:05 Urine Nitrate NEGATIVE (NEGATIVE) 03/16/18 13:05 Urine Bilirubin NEGATIVE (NEGATIVE) 03/16/18 13:05 Urine Urobilinogen 1.0 E.U./dL (0.2 - 1.0) 03/16/18 13:05 Ur Leukocyte Esterase NEGATIVE (NEGATIVE) 03/16/18 13:05 Urine RBC 2-5 /hpf (0-5) H 03/16/18 13:05 Urine WBC 0-2 /hpf (0-5) 03/16/18 13:05 Ur Epithelial Cells OCCASIONAL /lpf (FEW) 03/16/18 13:05 Urine Bacteria FEW /hpf (NONE SEEN) 03/16/18 13:05 Urine Mucus FEW /lpf (FEW) 03/16/18 13:05 Salicylates < 25.0 mg/L (30.0-100.0) L 03/16/18 12:50 Urine Opiates Screen NEGATIVE (NEGATIVE) 03/16/18 13:05 Urine Methadone Screen NEGATIVE (NEGATIVE) 03/16/18 13:05 Acetaminophen < 10.0 ug/mL (10.0-30.0) L 03/16/18 12:50 Ur Barbiturates Screen NEGATIVE (NEGATIVE) 03/16/18 13:05 Ur Tricyclics Screen NEGATIVE (NEGATIVE) 03/16/18 13:05 Ur Phencyclidine Scrn NEGATIVE (NEGATIVE) 03/16/18 13:05 Amphetamines Screen NEGATIVE (NEGATIVE) 03/16/18 13:05 U Methamphetamines Scrn NEGATIVE (NEGATIVE) 03/16/18 13:05 U Benzodiazepines Scrn POSITIVE (NEGATIVE) H 03/16/18 13:05 U Cocaine Metab Screen NEGATIVE (NEGATIVE) 03/16/18 13:05 U Cannabinoids Screen NEGATIVE (NEGATIVE) 03/16/18 13:05 Ethyl Alcohol < 10 mg/dL (0-10) 03/16/18 12:50 RPR NONREACTIVE (NONREACTIVE) 03/16/18 12:50 - Physical Exam Vitals and I&O: Vital Signs Temp 98.2 F 03/24/18 16:00 Pulse 58 03/24/18 16:00 Resp 17 03/24/18 16:00 BP 98/72 03/24/18 16:00 Pulse Ox 98 03/24/18 16:00 Intake & Output 03/24/18 03/24/18 03/25/18 06:59 18:59 06:59 Intake Total 120 1200 Output Total 600 Balance 120 600 Weight (lbs) 64.41 kg 64.41 kg Intake: Oral 120 1200 Output: Urine 600 Other: # Voids 2 # Bowel Movements 0 Weight Source Bedscale Bedscale Active Medications: Current Medications Atorvastatin Calcium (Lipitor) 20 mg PO DAILY [facility] Stop: 05/17/18 08:59 Last Admin: 03/24/18 08:53 Dose: 20 mg Calcium/Vitamin D (Oscal W/Vitamin D) 1 tab PO DAILY [facility] Stop: 05/17/18 08:59 Last Admin: 03/24/18 08:51 Dose: 1 tab Clotrimazole (Lotrimin 1% Cream) 1 appl TP BID [facility] Stop: 05/16/18 16:59 Last Admin: 03/24/18 17:54 Dose: 1 appl Escitalopram Oxalate (Lexapro) 10 mg PO HS [facility] Stop: 05/17/18 12:29 Last Admin: 03/24/18 20:43 Dose: 10 mg Furosemide (Lasix) 20 mg PO DAILY [facility] Stop: 05/17/18 08:59 Last Admin: 03/23/18 08:46 Dose: Not Given Insulin Aspart (Novolog Insulin Sliding Scale) 0 units SUBQ ACHS [facility]; Protocol Stop: 05/16/18 11:29 Last Admin: 03/24/18 20:25 Dose: Not Given Lisinopril (Zestril) 5 mg PO DAILY [facility] Stop: 05/17/18 08:59 Last Admin: 03/23/18 08:47 Dose: Not Given Metformin HCl (Glucophage) 500 mg PO BID [facility] Stop: 05/16/18 16:59 Last Admin: 03/24/18 08:51 Dose: 500 mg Ondansetron HCl (Zofran) 4 mg IV Q6H PRN PRN Reason: Nausea / Vomiting Stop: 05/21/18 19:33 Last Admin: 03/22/18 20:32 Dose: 4 mg Trazodone HCl (Desyrel) 25 mg PO HS [facility]; Protocol Stop: 05/17/18 12:29 Last Admin: 03/24/18 20:43 Dose: 25 mg Warfarin Sodium (Coumadin Per Pharmacy) 1 ea [facility] PRN PRN; Protocol PRN Reason: RX MONITORING Stop: 05/16/18 13:51 General: alert HEENT: NC/AT, PERRLA, EOMI, anicteric sclerae, throat clear Neck: Supple, No JVD, No thyromegaly, +2 carotid pulse wo bruit, No LAD Lungs: CTAB Cardiovascular: Normal S1, Normal S2, without murmur Abdomen: non-tender, non-distended Neurological: no change Internal Medicine Assmt/Plan - Assessment Assessment: 1.HTN. 2.DM. 3.DEPRESSION - Plan Plan: CONTINUE ON CURRENT MEDICATION AND DIET. Nutritional Asmnt/Malnutr-PDOC - Dietary Evaluation Malnutrition Findings (Please click <Entered> for more info): Nutritional Asmnt/Malnutrition Start: 03/20/18 11: 49 Text: Status: Complete Freq: Protocol: Document 03/20/18 11:49 CYDNEY (Rec: 03/20/18 12:06 [email or web address]- [email or web address]) Nutritional Asmnt/Malnutrition Patient General Information Nutritional Screening Moderate Risk Diagnosis Coumadin overdosing Pertinent Medical Hx/Surgical Hx Hypertension, diabetes mellitus, hyperlipidemia, DVT of lower extremity, depression Subjective Information Patient resting at time of visit. Tolerating current diet order without difficulty. Current Diet Order/ Nutrition Support 60gm CCHO Patient / S.O Not Indicated Pertinent Medications Lipitor, Oscal W/vitamin D, lasix, novolog, Metformin, Coumadin Pertinent Labs (03/16) K 3.4 Nutritional Hx/Data Height 1.73 m Height (Calculated Centimeters) 172.7 Current Weight (lbs) 65.317 kg Weight (Calculated Kilograms) 65.3 Weight (Calculated Grams) 26190.3 [place] Body Weight 154 % [place] Body Weight 93 Body Mass Index (BMI) 21.9 Recent Weight Change No Weight Status Approriate GI Symptoms GI Symptoms None Last BM 03/18x 1 Difficult in: None Food Allergies No Cultural/Ethnic/Jainism Belief None indicated Usual diet at home Unknown Skin Integrity/Comment: Julius 18, Pressure area, reddened Current %PO Good (75-100%) Estimated Nutritional Goals BEE in Kcals: Using Current wt Calories/Kcals/Kg 25-30 kcal/kg using 65.4kg CBW Kcals Calculated ~7678-0603 kcal/day Protein: Using Current wt Protein g/k-1.2 gm/kg - pressure area Protein Calculated ~65-80 gm/day Fluid: ml ~3701-3550 ml/day (1 ml/kcal) Nutritional Problem 1. Problem Problem Altered nutrition related lab values related to Etiology electrolyte imbalance aeb Signs/Symptoms: K 3.4 Intervention/Recommendation Comments 1. Continue 60gm CCHO diet as tolerated by patient due to hx of DM. 2. Encourage oral intake of high potassium foods; MD to supplement lytes as needed Expected Outcomes/Goals Expected Outcomes/Goals Oral intake >75% of meals, weight stable, nutrition related labs/potassium WNL F/U in 7 days as LR 03/27
[2018-03-25 05:38] LABS: INR 1.88 (0.5-1.4); PROTHROMBIN TIME (TEST) 18.9 SECONDS (9.5-11.5)
[2018-03-25] MEDS: INSULIN ASPART SLIDING SCALE 100 UNITS/ML UNIT SUBQ SCH ×4 (06:58→21:13)
[2018-03-25] MEDS: Calcium Carb/Vit D 500 mg/200 U Tab PO SCH (09:06)
[2018-03-25] MEDS: Atorvastatin Calcium 10 MG TAB PO SCH (09:07)
--- NOTE | 2018-03-25 23:39 | Internal Medicine Prog Note ---
Internal Medicine Subjective - Subjective Service Date: 03/25/18 Patient seen and examined:: without staff Patient is:: awake, verbal, in bed, talking Per staff patient has:: no adverse event Internal Medicine Objective - Results Result Diagrams: 03/21/18 13:50 03/16/18 12:50 Recent Labs: Laboratory Last Values WBC 6.8 Th/cmm (4.8-10.8) 03/21/18 13:50 RBC 4.53 Mil/cmm (4.30-5.70) 03/21/18 13:50 Hgb 13.9 gm/dL (12-16) 03/21/18 13:50 Hct 42.8 % (41.0-60) 03/21/18 13:50 MCV 94.4 fl (80-99) 03/21/18 13:50 MCH 30.6 pg (26.0-30.0) H 03/21/18 13:50 MCHC Differential 32.4 pg (28.0-36.0) 03/21/18 13:50 RDW 12.2 % (11.5-20.0) 03/21/18 13:50 Plt Count 200 Th/cmm (150-400) 03/21/18 13:50 MPV 7.5 fl 03/21/18 13:50 Neutrophils % 67.3 % (40.0-80.0) 03/21/18 13:50 Lymphocytes % 24.1 % (20.0-50.0) 03/21/18 13:50 Monocytes % 7.1 % (2.0-10.0) 03/21/18 13:50 Eosinophils % 0.7 % (0.0-5.0) 03/21/18 13:50 Basophils % 0.8 % (0.0-2.0) 03/21/18 13:50 PT 18.9 SECONDS (9.5-11.5) H 03/25/18 05:00 INR 1.88 (0.5-1.4) H 03/25/18 05:00 Sodium 137 mEq/L (136-145) 03/16/18 12:50 Potassium 3.4 mEq/L (3.5-5.1) L 03/16/18 12:50 Chloride 98 mEq/L (98-107) 03/16/18 12:50 Carbon Dioxide 29.4 mEq/L (21.0-31.0) 03/16/18 12:50 Anion Gap 13.0 (7.0-16.0) 03/16/18 12:50 BUN 22 mg/dL (7-25) 03/16/18 12:50 Creatinine 1.1 mg/dL (0.7-1.3) 03/16/18 12:50 Est GFR ( Amer) > 60.0 ml/min (>90) 03/16/18 12:50 Est GFR (Non-Af Amer) > 60.0 ml/min 03/16/18 12:50 BUN/Creatinine Ratio 20.0 03/16/18 12:50 Glucose 119 mg/dL (70-105) H 03/16/18 12:50 POC Glucose 92 MG/DL (70 - 105) 03/25/18 20:53 Calcium 10.2 mg/dL (8.6-10.3) 03/16/18 12:50 Total Bilirubin 0.8 mg/dL (0.3-1.0) 03/16/18 12:50 AST 12 U/L (13-39) L 03/16/18 12:50 ALT 12 U/L (7-52) 03/16/18 12:50 Alkaline Phosphatase 103 U/L (34-104) 03/16/18 12:50 Troponin I 0.01 ng/mL (0.01-0.05) 03/16/18 12:50 Total Protein 7.2 gm/dL (6.0-8.3) 03/16/18 12:50 Albumin 4.8 gm/dL (4.2-5.5) 03/16/18 12:50 Globulin 2.4 gm/dL 03/16/18 12:50 Albumin/Globulin Ratio 2.0 (1.0-1.8) H 03/16/18 12:50 Triglycerides 90 mg/dL (<150) 03/16/18 12:50 Cholesterol 112 mg/dL (<200) 03/16/18 12:50 LDL Cholesterol Direct 37 mg/dL (75-193) L 03/16/18 12:50 HDL Cholesterol 63 mg/dL (23-92) 03/16/18 12:50 TSH 0.62 uIU/ml (0.34-5.60) 03/16/18 12:50 Urine Source CLEAN C 03/16/18 13:05 Urine Color YELLOW 03/16/18 13:05 Urine Clarity CLEAR (CLEAR) 03/16/18 13:05 Urine pH 5.5 (4.6 - 8.0) 03/16/18 13:05 Ur Specific [place] 1.025 (1.005-1.030) 03/16/18 13:05 Urine Protein NEGATIVE mg/dL (NEGATIVE) 03/16/18 13:05 Urine Glucose (UA) NEGATIVE mg/dL (NEGATIVE) 03/16/18 13:05 Urine Ketones TRACE mg/dL (NEGATIVE) 03/16/18 13:05 Urine Blood NEGATIVE (NEGATIVE) 03/16/18 13:05 Urine Nitrate NEGATIVE (NEGATIVE) 03/16/18 13:05 Urine Bilirubin NEGATIVE (NEGATIVE) 03/16/18 13:05 Urine Urobilinogen 1.0 E.U./dL (0.2 - 1.0) 03/16/18 13:05 Ur Leukocyte Esterase NEGATIVE (NEGATIVE) 03/16/18 13:05 Urine RBC 2-5 /hpf (0-5) H 03/16/18 13:05 Urine WBC 0-2 /hpf (0-5) 03/16/18 13:05 Ur Epithelial Cells OCCASIONAL /lpf (FEW) 03/16/18 13:05 Urine Bacteria FEW /hpf (NONE SEEN) 03/16/18 13:05 Urine Mucus FEW /lpf (FEW) 03/16/18 13:05 Salicylates < 25.0 mg/L (30.0-100.0) L 03/16/18 12:50 Urine Opiates Screen NEGATIVE (NEGATIVE) 03/16/18 13:05 Urine Methadone Screen NEGATIVE (NEGATIVE) 03/16/18 13:05 Acetaminophen < 10.0 ug/mL (10.0-30.0) L 03/16/18 12:50 Ur Barbiturates Screen NEGATIVE (NEGATIVE) 03/16/18 13:05 Ur Tricyclics Screen NEGATIVE (NEGATIVE) 03/16/18 13:05 Ur Phencyclidine Scrn NEGATIVE (NEGATIVE) 03/16/18 13:05 Amphetamines Screen NEGATIVE (NEGATIVE) 03/16/18 13:05 U Methamphetamines Scrn NEGATIVE (NEGATIVE) 03/16/18 13:05 U Benzodiazepines Scrn POSITIVE (NEGATIVE) H 03/16/18 13:05 U Cocaine Metab Screen NEGATIVE (NEGATIVE) 03/16/18 13:05 U Cannabinoids Screen NEGATIVE (NEGATIVE) 03/16/18 13:05 Ethyl Alcohol < 10 mg/dL (0-10) 03/16/18 12:50 RPR NONREACTIVE (NONREACTIVE) 03/16/18 12:50 - Physical Exam Vitals and I&O: Vital Signs Temp 98.9 F 03/25/18 19:00 Pulse 69 03/25/18 19:00 Resp 19 03/25/18 20:00 BP 119/70 03/25/18 19:00 Pulse Ox 98 03/25/18 19:00 Intake & Output 03/25/18 03/25/18 03/26/18 06:59 18:59 06:59 Intake Total 250 800 500 Output Total 250 Balance 250 550 500 Weight (lbs) 65.862 kg 65.771 kg 65.771 kg Intake: Oral 250 800 500 Output: Urine 250 Other: # Voids 2 2 # Bowel Movements 0 Weight Source Bedscale Bedscale Bedscale Active Medications: Current Medications Acetaminophen (Tylenol) 650 mg PO Q4H PRN PRN Reason: Pain (Mild) Stop: 05/24/18 08:44 Last Admin: 03/25/18 09:10 Dose: 650 mg Atorvastatin Calcium (Lipitor) 20 mg PO DAILY [facility] Stop: 05/17/18 08:59 Last Admin: 03/25/18 09:07 Dose: 20 mg Calcium/Vitamin D (Oscal W/Vitamin D) 1 tab PO DAILY [facility] Stop: 05/17/18 08:59 Last Admin: 03/25/18 09:06 Dose: 1 tab Escitalopram Oxalate (Lexapro) 10 mg PO HS [facility] Stop: 05/17/18 12:29 Last Admin: 03/25/18 22:22 Dose: 10 mg Furosemide (Lasix) 20 mg PO DAILY [facility] Stop: 05/17/18 08:59 Last Admin: 03/25/18 09:09 Dose: 20 mg Insulin Aspart (Novolog Insulin Sliding Scale) 0 units SUBQ ACHS [facility]; Protocol Stop: 05/16/18 11:29 Last Admin: 03/25/18 21:13 Dose: Not Given Lisinopril (Zestril) 5 mg PO DAILY [facility] Stop: 05/17/18 08:59 Last Admin: 03/25/18 09:08 Dose: 5 mg Metformin HCl (Glucophage) 500 mg PO BID [facility] Stop: 05/16/18 16:59 Last Admin: 03/25/18 17:03 Dose: 500 mg Ondansetron HCl (Zofran) 4 mg IV Q6H PRN PRN Reason: Nausea / Vomiting Stop: 05/21/18 19:33 Last Admin: 03/22/18 20:32 Dose: 4 mg Trazodone HCl (Desyrel) 25 mg PO HS [facility]; Protocol Stop: 05/17/18 12:29 Last Admin: 03/25/18 22:22 Dose: 25 mg General: alert HEENT: NC/AT, PERRLA, EOMI, anicteric sclerae, throat clear Neck: Supple, No JVD, No thyromegaly, +2 carotid pulse wo bruit, No LAD Lungs: CTAB Cardiovascular: Normal S1, Normal S2, without murmur Abdomen: non-tender, non-distended Neurological: no change Internal Medicine Assmt/Plan - Assessment Assessment: 1.HTN. 2.DM. 3.DEPRESSION - Plan Plan: CONTINUE ON CURRENT MEDICATION AND DIET. Nutritional Asmnt/Malnutr-PDOC - Dietary Evaluation Malnutrition Findings (Please click <Entered> for more info): Nutritional Asmnt/Malnutrition Start: 03/20/18 11: 49 Text: Status: Complete Freq: Protocol: Document 03/20/18 11:49 MMCONNIE (Rec: 03/20/18 12:06 MMCONNIE PHILLIPS- [email or web address]) Nutritional Asmnt/Malnutrition Patient General Information Nutritional Screening Moderate Risk Diagnosis Coumadin overdosing Pertinent Medical Hx/Surgical Hx Hypertension, diabetes mellitus, hyperlipidemia, DVT of lower extremity, depression Subjective Information Patient resting at time of visit. Tolerating current diet order without difficulty. Current Diet Order/ Nutrition Support 60gm CCHO Patient / S.O Not Indicated Pertinent Medications Lipitor, Oscal W/vitamin D, lasix, novolog, Metformin, Coumadin Pertinent Labs (03/16) K 3.4 Nutritional Hx/Data Height 1.73 m Height (Calculated Centimeters) 172.7 Current Weight (lbs) 65.317 kg Weight (Calculated Kilograms) 65.3 Weight (Calculated Grams) 41288.3 [place] Body Weight 154 % [place] Body Weight 93 Body Mass Index (BMI) 21.9 Recent Weight Change No Weight Status Approriate GI Symptoms GI Symptoms None Last BM 03/18x 1 Difficult in: None Food Allergies No Cultural/Ethnic/Yazidism Belief None indicated Usual diet at home Unknown Skin Integrity/Comment: Julius 18, Pressure area, reddened Current %PO Good (75-100%) Estimated Nutritional Goals BEE in Kcals: Using Current wt Calories/Kcals/Kg 25-30 kcal/kg using 65.4kg CBW Kcals Calculated ~3890-6220 kcal/day Protein: Using Current wt Protein g/k-1.2 gm/kg - pressure area Protein Calculated ~65-80 gm/day Fluid: ml ~5575-4173 ml/day (1 ml/kcal) Nutritional Problem 1. Problem Problem Altered nutrition related lab values related to Etiology electrolyte imbalance aeb Signs/Symptoms: K 3.4 Intervention/Recommendation Comments 1. Continue 60gm CCHO diet as tolerated by patient due to hx of DM. 2. Encourage oral intake of high potassium foods; to supplement lytes as needed Expected Outcomes/Goals Expected Outcomes/Goals Oral intake >75% of meals, weight stable, nutrition related labs/potassium WNL F/U in 7 days as LR 03/27
[2018-03-26 06:18] LABS: INR 1.78 (0.5-1.4)
[2018-03-26] MEDS: INSULIN ASPART SLIDING SCALE 100 UNITS/ML UNIT SUBQ SCH ×4 (06:50→20:23)
[2018-03-26] MEDS: Calcium Carb/Vit D 500 mg/200 U Tab PO SCH (08:42)
[2018-03-26] MEDS: Atorvastatin Calcium 10 MG TAB PO SCH (08:42)
== END 2018-03-26 21:10 | DRG 918 ==
LOC: ER 12:05 → MSI 03-17 09:14
PROVIDERS: ADMIT Family Medicine; ATTEND Family Medicine
DX: T45.512A Poisoning by anticoagulants, intentional self-harm, initial encounter (principal); F32.3 Major depressive disorder, single episode, severe with psychotic features; I10 Essential (primary) hypertension; E11.9 Type 2 diabetes mellitus without complications; I25.10 Atherosclerotic heart disease of native coronary artery without angina pectoris; E78.5 Hyperlipidemia, unspecified; E87.6 Hypokalemia; Y92.89 Other specified places as the place of occurrence of the external cause; Z86.718 Personal history of other venous thrombosis and embolism; Z83.3 Family history of diabetes mellitus; Z82.49 Family history of ischemic heart disease and other diseases of the circulatory system; Z79.01 Long term (current) use of anticoagulants
CPT/HCPCS: 36415-UA; 80053-TC; 80061-TC; 80307; 80320-TC; 80329-TC; 81001-TC; 82948-90; 84443-TC; 84484-TC; 85025-TC; 85610-TC; 86592-TC; 93005; 97530; J1815; J2405; J3430; X3904; Z7610